=== PATIENT | male | born 1985 | race Caucasian/White ===

== ENCOUNTER → 2017-04-25 | Outpatient (CLI) | payer MEDICARE, MEDICAID ==
[2017-04-25 08:58] LABS: ALBUMIN 3.8 GM/DL (3.2-5.2); ALBUMIN/GLOBULIN RATIO 1.06 (1.00-1.93); ALKALINE PHOSPHATASE 124 U/L (45-117); ALT/SGPT 36 U/L (12-78); ANION GAP 8 MEQ/L (8-16); AST/SGOT 17 U/L (15-37); BILIRUBIN,TOTAL 0.3 MG/DL (0.2-1.0); BLOOD UREA NITROGEN 15 MG/DL (7-18); CALCIUM LEVEL 8.6 MG/DL (8.5-10.1); CARBON DIOXIDE LEVEL 22 MEQ/L (21-32); CHLORIDE LEVEL 112 MEQ/L (98-107); CREATININE FOR GFR 0.91 MG/DL (0.70-1.30); GLOMERULAR FILTRATION RATE > 60.0 (>60); GLUCOSE, FASTING 133 MG/DL (70-105); SODIUM LEVEL 142 MEQ/L (136-145); TOTAL PROTEIN 7.4 GM/DL (6.4-8.2)
[2017-04-25 09:06] LABS: BASO % 0.5 % (0.0-1.0); EOS # 0.2 K/mm3 (0.0-0.50); EOS % 2.3 % (0.0-3.0); LARGE UNSTAINED CELL # 0.5 K/mm3 (0.0-0.4); LARGE UNSTAINED CELL % 6.8 % (0.0-4.0); LYMPH # 1.1 K/mm3 (1.5-4.5); LYMPH % 15.8 % (24.0-44.0); MEAN CORPUSCULAR HEMOGLOBIN 31.5 pg (27.0-33.0); MEAN CORPUSCULAR HGB CONC 35.4 g/dl (32.0-36.5); MEAN CORPUSCULAR VOLUME 89.1 fl (80.0-96.0); MONO # 0.4 K/mm3 (0.0-0.8); MONO % 5.1 % (0.0-5.0); NEUTROPHILS # 4.8 K/mm3 (1.8-7.7); NEUTROPHILS % 69.5 % (36.0-66.0); PLATELET COUNT, AUTOMATED 168 k/mm3 (150-450); RED CELL DISTRIBUTION WIDTH 12.7 % (11.5-14.5); WHITE BLOOD COUNT 6.9 K/mm3 (4.0-10.0)
== END ==
LOC: M LAB 07:31
PROVIDERS: ATTEND Psychiatry & Neurology Neurology
DX: G40.309 Generalized idiopathic epilepsy and epileptic syndromes, not intractable, without status epilepticus (principal); G43.009 Migraine without aura, not intractable, without status migrainosus

== ENCOUNTER → 2017-04-25 | Outpatient (CLI) | payer MEDICARE, MEDICAID ==
[2017-04-25 09:04] LABS: ALBUMIN 3.7 GM/DL (3.2-5.2); ALBUMIN/GLOBULIN RATIO 1.09 (1.00-1.93); ALKALINE PHOSPHATASE 122 U/L (45-117); ALT/SGPT 37 U/L (12-78); ANION GAP 10 MEQ/L (8-16); AST/SGOT 16 U/L (15-37); BILIRUBIN,TOTAL 0.3 MG/DL (0.2-1.0); BLOOD UREA NITROGEN 15 MG/DL (7-18); CALCIUM LEVEL 8.7 MG/DL (8.5-10.1); CARBON DIOXIDE LEVEL 22 MEQ/L (21-32); CHLORIDE LEVEL 110 MEQ/L (98-107); CHOLESTEROL LEVEL 137 MG/DL (<200); CREATININE FOR GFR 0.92 MG/DL (0.70-1.30); FREE T4 0.77 NG/DL (0.76-1.46); GLOMERULAR FILTRATION RATE > 60.0 (>60); GLUCOSE, FASTING 133 MG/DL (70-105); MAGNESIUM LEVEL 2.3 MG/DL (1.8-2.4); SODIUM LEVEL 142 MEQ/L (136-145); TOTAL PROTEIN 7.1 GM/DL (6.4-8.2); TRIGLYCERIDES LEVEL 91 MG/DL (<150)
--- NOTE | 2017-04-25 09:57 | ECGEPIP ---
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
[2017-04-25 09:58] LABS: MEAN CORPUSCULAR HEMOGLOBIN 31.3 pg (27.0-33.0); MEAN CORPUSCULAR HGB CONC 35.1 g/dl (32.0-36.5); MEAN CORPUSCULAR VOLUME 89.2 fl (80.0-96.0); RED CELL DISTRIBUTION WIDTH 12.6 % (11.5-14.5)
== END ==
LOC: M LAB 07:36
PROVIDERS: ATTEND Nurse Practitioner Family
DX: R00.2 Palpitations (principal); G40.309 Generalized idiopathic epilepsy and epileptic syndromes, not intractable, without status epilepticus; G43.009 Migraine without aura, not intractable, without status migrainosus

== ENCOUNTER → 2017-09-09 | Outpatient (CLI) | payer MEDICARE, MEDICAID | LOC: M LAB 07:16 | PROVIDERS: ATTEND Nurse Practitioner Adult Health | DX: E88.81 Metabolic syndrome and other insulin resistance (principal); E78.00 Pure hypercholesterolemia, unspecified ==

== ENCOUNTER → 2017-10-08 | Outpatient (REF) | payer MEDICARE, MEDICAID | LOC: EEVIPCON 17:54 → M LAB REF 17:54 | PROVIDERS: ATTEND Physician Assistant | DX: L02.212 Cutaneous abscess of back [any part, except buttock and flank] (principal) ==

== ENCOUNTER → 2017-10-11 | Outpatient (CLI) | payer MEDICARE, MEDICAID | LOC: M LAB 07:00 | PROVIDERS: ATTEND Nurse Practitioner Psychiatric/Mental Health | DX: F31.32 Bipolar disorder, current episode depressed, moderate (principal); E78.00 Pure hypercholesterolemia, unspecified; R73.01 Impaired fasting glucose ==

== ENCOUNTER → 2017-10-26 | Outpatient (REF) | payer MEDICARE, MEDICAID | LOC: M LAB REF 16:33 | PROVIDERS: ATTEND Nurse Practitioner Adult Health | DX: L02.11 Cutaneous abscess of neck (principal) ==

== ENCOUNTER → 2017-12-20 | Outpatient (CLI) | payer MEDICARE, MEDICAID | LOC: M RAD 13:59 | DX: R22.1 Localized swelling, mass and lump, neck (principal) | CPT/HCPCS: 76536 ==

== ENCOUNTER 2018-01-20 09:16 | Day surgery (SDC) | payer MEDICARE, MEDICAID ==
[2018-01-20] MEDS ORDERED: LIDOCAINE 1% SDV 5 ML VIAL SQ (09:30)
[2018-01-20] MEDS: LR 1,000 ML IV (10:00)
[2018-01-20 10:14] LABS: BEDSIDE GLUCOSE 109 MG/DL (70-105)
[2018-01-20] MEDS ORDERED: PROPOFOL 200 MG/20 ML VIAL As Ordered ×5 (11:26→12:28)
[2018-01-20] MEDS ORDERED: MIDAZOLAM INJ 2 MG/2 ML VIAL (J2250) As Ordered (11:26)
[2018-01-20] MEDS ORDERED: fentaNYL 100 MCG/2 ML INJECTION (J3010) As Ordered ×2 (11:26→12:10)
[2018-01-20] MEDS: BUPIVACAINE HCL 0.25% 30 ML VIAL As Ordered (12:42)
[2018-01-20] MEDS: LIDOCAINE 1% SDV INJ 30 ML VIAL As Ordered (12:42)
[2018-01-20] MEDS ORDERED: ONDANSETRON 4MG/2ML VIAL (J2405) IV (13:15)
[2018-01-20] MEDS ORDERED: fentaNYL 100 MCG/2 ML INJECTION (J3010) IV (13:15)
[2018-01-20] MEDS ORDERED: NORCO, ANEXSIA 5/325MG TABLET (HYDROcodone/ACETAMINOPHEN) PO (13:15)
[2018-01-20] MEDS ORDERED: LR 1,000 ML IV (13:15)
[2018-01-20] MEDS ORDERED: PERCOCET 5MG/325MG TAB PO (13:15)
== END 2018-01-20 13:34 | disposition home or self-care (01) ==
LOC: M SDC 09:16
DX: L02.11 Cutaneous abscess of neck (principal); E11.9 Type 2 diabetes mellitus without complications; K21.9 Gastro-esophageal reflux disease without esophagitis; F41.9 Anxiety disorder, unspecified; F31.9 Bipolar disorder, unspecified; G47.30 Sleep apnea, unspecified; Z88.8 Allergy status to other drugs, medicaments and biological substances; Z88.1 Allergy status to other antibiotic agents; Z88.2 Allergy status to sulfonamides; Z79.899 Other long term (current) drug therapy; Z79.84 Long term (current) use of oral hypoglycemic drugs
CPT/HCPCS: 21501

== ENCOUNTER → 2018-02-13 | Outpatient (REF) | payer MEDICARE, MEDICAID ==
[2018-02-13 20:00] LABS: BASO # 0.1 10^3/uL (0.0-0.2); BASO % 0.9 % (0.0-1.0); EOS # 0.2 10^3/uL (0.0-0.50); EOS % 2.6 % (0.0-3.0); HEMATOCRIT 47.4 % (42.0-52.0); HEMOGLOBIN 15.9 g/dl (14.0-18.0); IMMATURE GRANULOCYTE % 0.3 % (0-3.0); LYMPH # 1.3 10^3/uL (1.5-4.5); LYMPH % 19.6 % (24.0-44.0); MEAN CORPUSCULAR HEMOGLOBIN 29.6 pg (27.0-33.0); MEAN CORPUSCULAR HGB CONC 33.5 g/dl (32.0-36.5); MEAN CORPUSCULAR VOLUME 88.1 fl (80.0-96.0); MONO # 0.5 10^3/uL (0.0-0.8); MONO % 7.6 % (0.0-5.0); NEUTROPHILS # 4.5 10^3/uL (1.8-7.7); PLATELET COUNT, AUTOMATED 180 10^3/uL (150-450); RED BLOOD COUNT 5.38 10^6/uL (4.30-6.10); RED CELL DISTRIBUTION WIDTH 12.3 % (11.5-14.5); WHITE BLOOD COUNT 6.5 10^3/uL (4.0-10.0)
[2018-02-13 20:11] LABS: TOTAL 25(OH) VITAMIN D 26.1 NG/ML (30.0-100.0)
== END ==
LOC: M LAB REF 17:36
DX: R53.83 Other fatigue (principal)
CPT/HCPCS: 84443

== ENCOUNTER → 2018-03-08 | Outpatient (CLI) | payer MEDICARE, MEDICAID | LOC: M EKG 16:43 | DX: R00.2 Palpitations (principal); R73.9 Hyperglycemia, unspecified; B35.1 Tinea unguium | CPT/HCPCS: 93005 ==

== ENCOUNTER → 2018-03-08 | Outpatient (REF) | payer MEDICARE, MEDICAID ==
[2018-03-08 17:49] LABS: ALBUMIN 3.8 GM/DL (3.2-5.2); ALBUMIN/GLOBULIN RATIO 1.03 (1.00-1.93); ALKALINE PHOSPHATASE 93 U/L (45-117); ALT/SGPT 39 U/L (12-78); ANION GAP 5 MEQ/L (8-16); AST/SGOT 18 U/L (7-37); BILIRUBIN,TOTAL 0.4 MG/DL (0.2-1.0); BLOOD UREA NITROGEN 14 MG/DL (7-18); CALCIUM LEVEL 9.1 MG/DL (8.5-10.1); CARBON DIOXIDE LEVEL 31 MEQ/L (21-32); CHLORIDE LEVEL 102 MEQ/L (98-107); CREATININE FOR GFR 0.72 MG/DL (0.70-1.30); GLOMERULAR FILTRATION RATE > 60.0 (>60); GLUCOSE, FASTING 120 MG/DL (70-100); POTASSIUM SERUM 4.1 MEQ/L (3.5-5.1); SODIUM LEVEL 138 MEQ/L (136-145); TOTAL PROTEIN 7.5 GM/DL (6.4-8.2)
[2018-03-08 20:15] LABS: ESTIMATED AVERAGE GLUCOSE 131 MG/DL (60-110); HEMOGLOBIN A1c 6.2 %
== END ==
LOC: M LAB REF 16:44
DX: R73.9 Hyperglycemia, unspecified (principal); B35.1 Tinea unguium

== ENCOUNTER → 2018-04-11 | Outpatient (CLI) | payer MEDICARE, MEDICAID ==
[2018-04-11 18:27] LABS: ALBUMIN 3.7 GM/DL (3.2-5.2); ALBUMIN/GLOBULIN RATIO 1.03 (1.00-1.93); ALKALINE PHOSPHATASE 98 U/L (45-117); ALT/SGPT 50 U/L (12-78); ANION GAP 6 MEQ/L (8-16); AST/SGOT 21 U/L (7-37); BILIRUBIN,TOTAL 0.4 MG/DL (0.2-1.0); BLOOD UREA NITROGEN 9 MG/DL (7-18); CALCIUM LEVEL 9.1 MG/DL (8.5-10.1); CARBON DIOXIDE LEVEL 32 MEQ/L (21-32); CHLORIDE LEVEL 102 MEQ/L (98-107); CREATININE FOR GFR 0.72 MG/DL (0.70-1.30); GLOMERULAR FILTRATION RATE > 60.0 (>60); GLUCOSE, FASTING 84 MG/DL (70-100); POTASSIUM SERUM 4.1 MEQ/L (3.5-5.1); SODIUM LEVEL 140 MEQ/L (136-145); TOTAL PROTEIN 7.3 GM/DL (6.4-8.2)
== END ==
LOC: M LAB 16:02
DX: B35.1 Tinea unguium (principal)
CPT/HCPCS: 80053

== ENCOUNTER → 2018-05-18 | Outpatient (REF) | payer MEDICARE, MEDICAID ==
[2018-05-18 19:10] LABS: ALBUMIN 3.4 GM/DL (3.2-5.2); ALBUMIN/GLOBULIN RATIO 0.94 (1.00-1.93); ALKALINE PHOSPHATASE 93 U/L (45-117); ALT/SGPT 35 U/L (12-78); ANION GAP 6 MEQ/L (8-16); AST/SGOT 15 U/L (7-37); BILIRUBIN,TOTAL 0.3 MG/DL (0.2-1.0); BLOOD UREA NITROGEN 13 MG/DL (7-18); CALCIUM LEVEL 8.5 MG/DL (8.5-10.1); CARBON DIOXIDE LEVEL 30 MEQ/L (21-32); CHLORIDE LEVEL 107 MEQ/L (98-107); CREATININE FOR GFR 0.66 MG/DL (0.70-1.30); GLOMERULAR FILTRATION RATE > 60.0 (>60); GLUCOSE, FASTING 98 MG/DL (70-100); POTASSIUM SERUM 3.9 MEQ/L (3.5-5.1); SODIUM LEVEL 143 MEQ/L (136-145)
== END ==
LOC: M LAB REF 17:14
DX: B35.1 Tinea unguium (principal)
CPT/HCPCS: 80053

== ENCOUNTER → 2018-10-25 | Outpatient (CLI) | payer MEDICARE, MEDICAID ==
[2018-10-25 08:52] LABS: BASO # 0.1 10^3/uL (0.0-0.2); BASO % 0.8 % (0.0-1.0); EOS # 0.2 10^3/uL (0.0-0.50); EOS % 3.9 % (0.0-3.0); HEMATOCRIT 51.7 % (42.0-52.0); HEMOGLOBIN 17.8 g/dl (13.5-17.5); IMMATURE GRANULOCYTE % 0.5 % (0-3.0); LYMPH # 1.2 10^3/uL (1.5-4.5); MEAN CORPUSCULAR HEMOGLOBIN 29.8 pg (27.0-33.0); MEAN CORPUSCULAR HGB CONC 34.4 g/dl (32.0-36.5); MEAN CORPUSCULAR VOLUME 86.6 fl (80.0-96.0); MONO # 0.4 10^3/uL (0.0-0.8); NEUTROPHILS # 4.2 10^3/uL (1.8-7.7); NEUTROPHILS % 68.8 % (36.0-66.0); PLATELET COUNT, AUTOMATED 209 10^3/uL (150-450); RED BLOOD COUNT 5.97 10^6/uL (4.30-6.10); RED CELL DISTRIBUTION WIDTH 12.5 % (11.5-14.5); WHITE BLOOD COUNT 6.1 10^3/uL (4.0-10.0)
[2018-10-25 09:25] LABS: ALBUMIN 3.6 GM/DL (3.2-5.2); ALBUMIN/GLOBULIN RATIO 1.03 (1.00-1.93); ALKALINE PHOSPHATASE 97 U/L (45-117); ALT/SGPT 39 U/L (12-78); ANION GAP 10 MEQ/L (8-16); AST/SGOT 19 U/L (7-37); BILIRUBIN,TOTAL 0.2 MG/DL (0.2-1.0); BLOOD UREA NITROGEN 15 MG/DL (7-18); CALCIUM LEVEL 9.1 MG/DL (8.5-10.1); CARBON DIOXIDE LEVEL 24 MEQ/L (21-32); CHLORIDE LEVEL 106 MEQ/L (98-107); CREATININE FOR GFR 0.81 MG/DL (0.70-1.30); GLOMERULAR FILTRATION RATE > 60.0 (>60); GLUCOSE, FASTING 129 MG/DL (70-100); POTASSIUM SERUM 4.1 MEQ/L (3.5-5.1); SODIUM LEVEL 140 MEQ/L (136-145); TOTAL PROTEIN 7.1 GM/DL (6.4-8.2)
[2018-10-28 00:11] LABS: OXCARBAZEPINE 29 ug/mL (10-35)
[2018-10-28 00:11] LABS: TOPIRAMATE LEVEL 3.8 ug/mL (2.0-25.0)
== END ==
LOC: M LAB 07:45
DX: G40.309 Generalized idiopathic epilepsy and epileptic syndromes, not intractable, without status epilepticus (principal); G43.009 Migraine without aura, not intractable, without status migrainosus; B35.1 Tinea unguium; R73.9 Hyperglycemia, unspecified
CPT/HCPCS: 80053

== ENCOUNTER → 2018-10-25 | Outpatient (CLI) | payer MEDICARE, MEDICAID ==
[2018-10-25 09:25] LABS: ALBUMIN 3.6 GM/DL (3.2-5.2); ALBUMIN/GLOBULIN RATIO 1.06 (1.00-1.93); ALKALINE PHOSPHATASE 103 U/L (45-117); ALT/SGPT 38 U/L (12-78); ANION GAP 9 MEQ/L (8-16); AST/SGOT 19 U/L (7-37); BILIRUBIN,TOTAL 0.2 MG/DL (0.2-1.0); BLOOD UREA NITROGEN 15 MG/DL (7-18); CARBON DIOXIDE LEVEL 24 MEQ/L (21-32); CHLORIDE LEVEL 106 MEQ/L (98-107); GLOMERULAR FILTRATION RATE > 60.0 (>60); GLUCOSE, FASTING 128 MG/DL (70-100); POTASSIUM SERUM 4.1 MEQ/L (3.5-5.1); SODIUM LEVEL 139 MEQ/L (136-145)
[2018-10-25 09:47] LABS: ESTIMATED AVERAGE GLUCOSE 143 MG/DL (60-110); HEMOGLOBIN A1c 6.6 %
== END ==
LOC: M LAB 07:52
DX: B35.1 Tinea unguium (principal); R73.9 Hyperglycemia, unspecified

== ENCOUNTER → 2019-03-30 | Outpatient (REF) | payer MEDICARE, MEDICAID ==
[~2019-03-30] MED LIST: ABIL10TA9 PO; ADDE30CA3 PO; FLUO20TA28 PO; FLUO40CA PO; HYDR-3713 PO; METF-699 PO; PRIL20TA2 PO; TOPA100T12 PO; TRIL1TAB PO; VITA-182 PO
[2019-04-01 00:10] LABS: Lyme Disease IgG/IgM Antibodie <0.91 ISR (0.00-0.90); Lyme Disease IgM Ab Quantitati <0.80 index (0.00-0.79)
== END ==
LOC: M LAB REF 12:05
PROVIDERS: ATTEND Family Medicine
DX: Z13.228 Encounter for screening for other metabolic disorders (principal)

== ENCOUNTER → 2019-04-06 | Outpatient (REF) | payer MEDICARE, MEDICAID ==
[2019-04-06 18:54] LABS: BASO # 0.1 10^3/uL (0.0-0.2); BASO % 0.8 % (0.0-1.0); EOS # 0.2 10^3/uL (0.0-0.50); EOS % 2.8 % (0.0-3.0); HEMATOCRIT 50.4 % (42.0-52.0); LYMPH # 1.4 10^3/uL (1.5-4.5); LYMPH % 21.2 % (24.0-44.0); MEAN CORPUSCULAR HEMOGLOBIN 29.6 pg (27.0-33.0); MEAN CORPUSCULAR HGB CONC 33.7 g/dl (32.0-36.5); MEAN CORPUSCULAR VOLUME 87.8 fl (80.0-96.0); MONO # 0.5 10^3/uL (0.0-0.8); MONO % 7.4 % (0.0-5.0); NEUTROPHILS # 4.3 10^3/uL (1.8-7.7); NEUTROPHILS % 67.3 % (36.0-66.0); PLATELET COUNT, AUTOMATED 199 10^3/uL (150-450); RED BLOOD COUNT 5.74 10^6/uL (4.30-6.10); WHITE BLOOD COUNT 6.5 10^3/uL (4.0-10.0)
[2019-04-06 19:07] LABS: ALT/SGPT 44 U/L (12-78); BILIRUBIN,TOTAL 0.4 MG/DL (0.2-1.0); BLOOD UREA NITROGEN 11 MG/DL (7-18); CALCIUM LEVEL 9.4 MG/DL (8.5-10.1); CARBON DIOXIDE LEVEL 28 MEQ/L (21-32); CHLORIDE LEVEL 102 MEQ/L (98-107); CHOLESTEROL LEVEL 174 MG/DL (<200); CHOLESTEROL RISK RATIO 4.833 (<5); CREATININE FOR GFR 0.83 MG/DL (0.70-1.30); FREE T4 0.87 NG/DL (0.76-1.46); GLOMERULAR FILTRATION RATE > 60.0 (>60); GLUCOSE, FASTING 103 MG/DL (70-100); HDL CHOLESTEROL 36 MG/DL (>40); LDL CHOLESTEROL 101 MG/DL (<100); NON-HDL-C 138 MG/DL; POTASSIUM SERUM 3.9 MEQ/L (3.5-5.1); SODIUM LEVEL 138 MEQ/L (136-145); TOTAL PROTEIN 7.3 GM/DL (6.4-8.2); TRIGLYCERIDES LEVEL 184 MG/DL (<150)
[2019-04-06 19:10] LABS: TOTAL 25(OH) VITAMIN D 30.3 NG/ML (30.0-100.0)
[2019-04-06 20:07] LABS: HEMOGLOBIN A1c 6.4 %
== END ==
LOC: M LAB REF 18:23
PROVIDERS: ATTEND Family Medicine
DX: E11.9 Type 2 diabetes mellitus without complications (principal); Z13.228 Encounter for screening for other metabolic disorders

== ENCOUNTER → 2019-07-06 | Outpatient (REF) | payer MEDICAID, MEDICARE ==
[2019-07-06 13:28] LABS: ALBUMIN 3.6 GM/DL (3.2-5.2); ALT/SGPT 34 U/L (12-78); BILIRUBIN,TOTAL 0.4 MG/DL (0.2-1.0); BLOOD UREA NITROGEN 15 MG/DL (7-18); CALCIUM LEVEL 9.1 MG/DL (8.5-10.1); CARBON DIOXIDE LEVEL 26 MEQ/L (21-32); CHLORIDE LEVEL 104 MEQ/L (98-107); CHOLESTEROL LEVEL 178 MG/DL (<200); CREATININE FOR GFR 0.79 MG/DL (0.70-1.30); GLOMERULAR FILTRATION RATE > 60.0 (>60); GLUCOSE, FASTING 138 MG/DL (70-100); HDL CHOLESTEROL 37 MG/DL (>40); LDL CHOLESTEROL 110 MG/DL (<100); NON-HDL-C 141 MG/DL; SODIUM LEVEL 139 MEQ/L (136-145); TOTAL PROTEIN 6.9 GM/DL (6.4-8.2); TRIGLYCERIDES LEVEL 154 MG/DL (<150)
[2019-07-06 13:59] LABS: HEMOGLOBIN A1c 6.8 %
== END ==
LOC: M LAB REF 12:18
PROVIDERS: ATTEND Family Medicine
DX: E11.9 Type 2 diabetes mellitus without complications (principal)

== ENCOUNTER → 2019-10-02 | Outpatient (REF) | payer BC, MEDICAID ==
[2019-10-02 16:45] LABS: ALBUMIN 3.7 GM/DL (3.2-5.2); ALT/SGPT 41 U/L (12-78); BILIRUBIN,TOTAL 0.5 MG/DL (0.2-1.0); BLOOD UREA NITROGEN 14 MG/DL (7-18); CARBON DIOXIDE LEVEL 29 MEQ/L (21-32); CHLORIDE LEVEL 102 MEQ/L (98-107); CHOLESTEROL LEVEL 170 MG/DL (<200); CHOLESTEROL RISK RATIO 4.722 (<5); CREATININE FOR GFR 0.84 MG/DL (0.70-1.30); GLOMERULAR FILTRATION RATE > 60.0 (>60); GLUCOSE, FASTING 130 MG/DL (70-100); HDL CHOLESTEROL 36 MG/DL (>40); LDL CHOLESTEROL 108 MG/DL (<100); NON-HDL-C 134 MG/DL; POTASSIUM SERUM 4.2 MEQ/L (3.5-5.1); SODIUM LEVEL 139 MEQ/L (136-145); TOTAL PROTEIN 7.2 GM/DL (6.4-8.2); TRIGLYCERIDES LEVEL 131 MG/DL (<150)
[2019-10-02 16:55] LABS: HEMOGLOBIN A1c 6.5 %
[2019-10-02 17:10] LABS: MALB URINE SIEMENS 8.7 MG/L; MAU/CREAT RATIO 7.5 MCG/MG (0.0-30.0)
== END ==
LOC: M LAB REF 16:09
PROVIDERS: ATTEND Family Medicine
DX: E11.9 Type 2 diabetes mellitus without complications (principal)

== ENCOUNTER → 2020-02-05 | Outpatient (REF) | payer BC, MEDICAID ==
[2020-02-05 12:08] LABS: BASO # 0.1 10^3/uL (0.0-0.2); EOS # 0.2 10^3/uL (0.0-0.5); HEMATOCRIT 48.7 % (42.0-52.0); HEMOGLOBIN 16.6 g/dl (13.5-17.5); LYMPH # 1.4 10^3/uL (1.5-5.0); LYMPH % 19.8 % (24.0-44.0); MEAN CORPUSCULAR HEMOGLOBIN 29.6 pg (27.0-33.0); MEAN CORPUSCULAR HGB CONC 34.1 g/dl (32.0-36.5); MEAN CORPUSCULAR VOLUME 86.8 fl (80.0-96.0); MONO # 0.5 10^3/uL (0.0-0.8); MONO % 7.7 % (0.0-5.0); NEUTROPHILS # 4.8 10^3/uL (1.5-8.5); NEUTROPHILS % 68.4 % (36.0-66.0); PLATELET COUNT, AUTOMATED 179 10^3/uL (150-450); RED BLOOD COUNT 5.61 10^6/uL (4.30-6.10)
[2020-02-05 12:23] LABS: ALBUMIN 3.4 GM/DL (3.2-5.2); ALT/SGPT 43 U/L (12-78); BILIRUBIN,TOTAL 0.4 MG/DL (0.2-1.0); BLOOD UREA NITROGEN 17 MG/DL (7-18); CALCIUM LEVEL 9.2 MG/DL (8.5-10.1); CARBON DIOXIDE LEVEL 30 MEQ/L (21-32); CHLORIDE LEVEL 102 MEQ/L (98-107); CHOLESTEROL LEVEL 131 MG/DL (<200); CHOLESTEROL RISK RATIO 5.458 (<5); CREATININE FOR GFR 0.85 MG/DL (0.70-1.30); GLOMERULAR FILTRATION RATE > 60.0 (>60); GLUCOSE, FASTING 162 MG/DL (70-100); HDL CHOLESTEROL 24 MG/DL (>40); LDL CHOLESTEROL 69 MG/DL (<100); NON-HDL-C 107 MG/DL; POTASSIUM SERUM 4.3 MEQ/L (3.5-5.1); SODIUM LEVEL 138 MEQ/L (136-145); THYROID STIMULATING HORMONE 0.797 uIU/ML (0.358-3.740); TRIGLYCERIDES LEVEL 192 MG/DL (<150)
== END ==
LOC: M LAB REF 11:32
PROVIDERS: ATTEND Family Medicine
DX: E11.9 Type 2 diabetes mellitus without complications (principal)

== ENCOUNTER → 2020-05-04 | Outpatient (CLI) | payer BC, MEDICAID ==
[~2020-05-04] MED LIST changes: +ABIL1TAB12 PO; +FISH1000 PO; +GABA-843 PO; +LIPI10TA PO; +PRAZ2CAP PO; +VITAD1000T PO
== END ==
LOC: M LABSMTC 09:08
PROVIDERS: ATTEND Anesthesiology
DX: Z03.818 Encounter for observation for suspected exposure to other biological agents ruled out (principal); Z11.59 Encounter for screening for other viral diseases
CPT/HCPCS: C9803; U0003

== ENCOUNTER 2020-05-07 08:03 | Day surgery (SDC) | payer BC, MEDICAID ==
[~2020-05-07] VITALS: Ht 170.2 cm; Wt 117.4 kg
[~2020-05-07 08:03] MED LIST changes: +D31000TA2 PO; +LIDOCAINE 2% 100MG/5ML SDV (FOR ANES.) As Ordered ONE; -METF-699 PO; +METF-817 PO; +NS 1,000 ML IV ONE; -VITAD1000T PO; +propofoL 200 MG/20 ML VIAL As Ordered ONE
--- NOTE | 2020-05-07 09:38 | ROOR ---
Patient Name: Rui Dumont Procedure Date: 05/07/2020 9:10 AM Date of : 1985 Age: 34 Room: [facility] Gender: Male Note Status: Finalized Procedure: Colonoscopy Indications: Rectal bleeding Providers: Waylon Bradshaw MD Referring MD: Miguel Angel LYNCH MD Requesting Provider: Medicines: Monitored Anesthesia Care Complications: No immediate complications. Procedure: Pre-Anesthesia Assessment: - Prior to the procedure, a History and Physical was performed, and patient medications and allergies were reviewed. The patient is competent. The risks and benefits of the procedure and the sedation options and risks were discussed with the patient. All questions were answered and informed consent was obtained. Patient identification and proposed procedure were verified by the physician, the nurse and the anesthesiologist in the endoscopy suite. Mental Status Examination: alert and oriented. Airway Examination: normal oropharyngeal airway and neck mobility. Respiratory Examination: clear to auscultation. CV Examination: normal. Prophylactic Antibiotics: The patient does not require prophylactic antibiotics. Prior Anticoagulants: The patient has taken no previous anticoagulant or antiplatelet agents. ASA Grade Assessment: II - A patient with mild systemic disease. After reviewing the risks and benefits, the patient was deemed in satisfactory condition to undergo the procedure. The anesthesia plan was to use monitored anesthesia care (MAC). Immediately prior to administration of medications, the patient was re-assessed for adequacy to receive sedatives. The heart rate, respiratory rate, oxygen saturations, blood pressure, adequacy of pulmonary ventilation, and response to care were monitored throughout the procedure. The physical status of the patient was re-assessed after the procedure. The Colonoscope was introduced through the anus and advanced to 10 cm into the ileum. The colonoscopy was somewhat difficult due to poor bowel prep. Successful completion of the procedure was aided by lavage. The patient tolerated the procedure well. Findings: There is no endoscopic evidence of bleeding, diverticula, erythema, inflammation or polyps in the entire colon. No additional abnormalities were found on retroflexion. terminal ileum is normal - no signs of inflammation Poor prep with portions with solid stool, small polyps could easily be missed. but with large amount of lavage was able to see about 90% of the colon wall. Impression: - No specimens collected. Recommendation: - May need to be evaluated in the ER if bleeding happens again - Discharge patient to home [Means]. - Resume regular diet. Waylon Bradshaw MD Waylon Bradshaw MD 05/07/2020 9:38:42 AM Electronically signed by Waylon Bradshaw MD Number of Addenda: 0 Note Initiated On: 05/07/2020 9:10 AM Estimated Blood Loss: Estimated blood loss: none.
[2020-05-07 10:00] VITALS: BP 120/64
== END 2020-05-07 10:02 | disposition home or self-care (01) ==
LOC: M OPP 08:03
PROVIDERS: ATTEND Surgery
DX: K62.5 Hemorrhage of anus and rectum (principal); E11.9 Type 2 diabetes mellitus without complications; Z79.899 Other long term (current) drug therapy; Z88.2 Allergy status to sulfonamides; Z88.8 Allergy status to other drugs, medicaments and biological substances

== ENCOUNTER → 2020-07-14 | Outpatient (REF) | payer BC, MEDICAID ==
[~2020-07-14] MED LIST changes: -LIDOCAINE 2% 100MG/5ML SDV (FOR ANES.) As Ordered ONE; -NS 1,000 ML IV ONE; -propofoL 200 MG/20 ML VIAL As Ordered ONE
[2020-07-14 18:05] LABS: ALBUMIN 3.6 GM/DL (3.2-5.2); ALT/SGPT 78 U/L (12-78); BILIRUBIN,TOTAL 0.5 MG/DL (0.2-1.0); BLOOD UREA NITROGEN 12 MG/DL (7-18); CALCIUM LEVEL 8.6 MG/DL (8.5-10.1); CARBON DIOXIDE LEVEL 28 MEQ/L (21-32); CHLORIDE LEVEL 104 MEQ/L (98-107); CHOLESTEROL LEVEL 103 MG/DL (<200); CHOLESTEROL RISK RATIO 3.121 (<5); CREATININE FOR GFR 0.88 MG/DL (0.70-1.30); GLOMERULAR FILTRATION RATE > 60.0 (>60); GLUCOSE, FASTING 151 MG/DL (70-100); HDL CHOLESTEROL 33 MG/DL (>40); LDL CHOLESTEROL 52 MG/DL (<100); NON-HDL-C 70 MG/DL; POTASSIUM SERUM 3.7 MEQ/L (3.5-5.1); SODIUM LEVEL 140 MEQ/L (136-145); TESTOSTERONE 268 NG/DL (241-827); TOTAL PROTEIN 7.1 GM/DL (6.4-8.2); TRIGLYCERIDES LEVEL 89 MG/DL (<150)
[2020-07-14 21:26] LABS: HEMOGLOBIN A1c 7.2 %
== END ==
LOC: M LAB REF 17:23
PROVIDERS: ATTEND Family Medicine Addiction Medicine
DX: N52.02 Corporo-venous occlusive erectile dysfunction (principal); E11.9 Type 2 diabetes mellitus without complications

== ENCOUNTER → 2020-09-30 | Outpatient (REF) | payer BC, MEDICAID, MEDICARE ==
[2020-09-30 10:55] LABS: SEMEN APPEARANCE OPAQUE (OPAQUE); SEMEN VISCOSITY LIQUID (LIQUID); SEMEN VOLUME 2.9 ml (2.0-5.0)
[2020-09-30 10:56] LABS: SPERM CONCENTRATION 8.2 M/ml (>=15.0); WBC CONCENTRATION >1 M/ml (<=1 M/ml)
== END ==
LOC: M SMT 09:47
PROVIDERS: ATTEND Nurse Practitioner Women's Health
DX: N46.9 Male infertility, unspecified (principal)

== ENCOUNTER → 2020-10-24 | Outpatient (REF) | payer BC, MEDICAID ==
[2020-10-24 17:13] LABS: ALBUMIN 3.6 GM/DL (3.2-5.2); ALT/SGPT 55 U/L (12-78); BILIRUBIN,TOTAL 0.5 MG/DL (0.2-1.0); BLOOD UREA NITROGEN 9 MG/DL (7-18); CALCIUM LEVEL 8.9 MG/DL (8.5-10.1); CARBON DIOXIDE LEVEL 31 MEQ/L (21-32); CHLORIDE LEVEL 105 MEQ/L (98-107); CHOLESTEROL LEVEL 155 MG/DL (<200); CHOLESTEROL RISK RATIO 4.428 (<5); CREATININE FOR GFR 0.71 MG/DL (0.70-1.30); GLOMERULAR FILTRATION RATE > 60.0 (>60); GLUCOSE, FASTING 148 MG/DL (70-100); HDL CHOLESTEROL 35 MG/DL (>40); HEMOGLOBIN A1c 7.9 %; LDL CHOLESTEROL 93 MG/DL (<100); NON-HDL-C 120 MG/DL; POTASSIUM SERUM 3.8 MEQ/L (3.5-5.1); SODIUM LEVEL 141 MEQ/L (136-145); TRIGLYCERIDES LEVEL 137 MG/DL (<150)
== END ==
LOC: M LAB REF 16:05
PROVIDERS: ATTEND Family Medicine Addiction Medicine
DX: E11.9 Type 2 diabetes mellitus without complications (principal)

== ENCOUNTER → 2020-10-30 | Outpatient (CLI) | payer BC, MEDICAID ==
--- NOTE | 2020-10-30 16:23 | REP ---
INDICATION: AZOOSPERMIA ,MALE INFERTILITY UNSPECIFIED. COMPARISON: None. TECHNIQUE: Real-time sonographic evaluation of scrotum and contents performed. FINDINGS: The testicles are normal in size and echotexture, right testicle measuring 4.6 x 2.4 x 3.6 cm and left testicle 3.6 x 1.7 x 2.7 cm. No testicular mass or torsion. Blood flow is seen in each testicle with duplex Doppler evaluation. Epididymis is unremarkable bilaterally. There is no significant hydrocele. IMPRESSION: Negative scrotal ultrasound. <Electronically signed by Crow Ramires > 10/30/20 [id number]
== END ==
LOC: M RAD 15:04
PROVIDERS: ATTEND Nurse Practitioner Women's Health
DX: N46.01 Organic azoospermia (principal)

== ENCOUNTER → 2020-11-11 | Outpatient (CLI) | payer BC, MEDICAID ==
[2020-11-11 11:20] LABS: ESTRADIOL 38.6 PG/ML (<39.8); LUTEINIZING HORMONE 4.2 mIU/mL (1.5-9.3); PROLACTIN 3.5 NG/ML (2.1-17.7)
[2020-11-13 20:07] LABS: TESTOSTERONE FREE (DIRECT) 9.1 pg/mL (8.7-25.1)
== END ==
LOC: M LAB 09:56
PROVIDERS: ATTEND Nurse Practitioner Women's Health
DX: N46.9 Male infertility, unspecified (principal)

== ENCOUNTER → 2020-12-01 | Outpatient (REF) | payer BC ==
[~2020-12-01] MED LIST changes: +GABA-282 PO; -GABA-843 PO
== END ==
LOC: M LAB REF 16:48
PROVIDERS: ATTEND Physician Assistant Medical
DX: S11.80XA Unspecified open wound of other specified part of neck, initial encounter (principal); Y92.9 Unspecified place or not applicable; Y93.9 Activity, unspecified; Y99.9 Unspecified external cause status

== ENCOUNTER → 2021-01-22 | Outpatient (REF) | payer BC, MEDICAID ==
[2021-01-22 11:03] LABS: SEMEN APPEARANCE OPAQUE (OPAQUE); SEMEN VISCOSITY LIQUID (LIQUID); SEMEN WBC >1 M/ml (<=1 M/ml); SEMEN pH 8.5 (7.0-8.0)
== END ==
LOC: M SMT 10:24
PROVIDERS: ATTEND Urology
DX: N46.9 Male infertility, unspecified (principal)

== ENCOUNTER → 2021-03-30 | Outpatient (REF) | payer BC, MEDICAID ==
[2021-03-30 09:38] LABS: SEMEN APPEARANCE OPAQUE (OPAQUE); SEMEN VISCOSITY LIQUID (LIQUID); SEMEN VOLUME 3.9 ml (2.0-5.0); SPERM CONCENTRATION 16.8 M/ml (>=15.0); WBC CONCENTRATION <=1 M/ml (<=1 M/ml)
== END ==
LOC: M SMT 09:04
PROVIDERS: ATTEND Nurse Practitioner Women's Health
DX: N46.01 Organic azoospermia (principal)

== ENCOUNTER 2021-07-01 08:58 | Emergency (ER) | payer BC, MEDICAID ==
[~2021-07-01] VITALS: Ht 170.2 cm; Wt 122.8 kg
[2021-07-01 11:10] LABS: BASO # 0.1 10^3/uL (0.0-0.2); BASO % 1.1 % (0.0-1.0); EOS # 0.1 10^3/uL (0.0-0.5); EOS % 1.5 % (0.0-3.0); HEMATOCRIT 47.8 % (42.0-52.0); HEMOGLOBIN 15.9 g/dl (13.5-17.5); LYMPH # 1.1 10^3/uL (1.5-5.0); LYMPH % 22.9 % (24.0-44.0); MEAN CORPUSCULAR HEMOGLOBIN 28.7 pg (27.0-33.0); MEAN CORPUSCULAR HGB CONC 33.3 g/dl (32.0-36.5); MEAN CORPUSCULAR VOLUME 86.3 fl (80.0-96.0); MONO # 0.4 10^3/uL (0.0-0.8); MONO % 8.5 % (2.0-8.0); NEUTROPHILS # 3.1 10^3/uL (1.5-8.5); NEUTROPHILS % 65.6 % (36.0-66.0); PLATELET COUNT, AUTOMATED 156 10^3/uL (150-450); RED BLOOD COUNT 5.54 10^6/uL (4.30-6.10); WHITE BLOOD COUNT 4.7 10^3/uL (4.0-10.0)
[2021-07-01] MEDS ORDERED: MONT10TA10 PO (11:14)
[2021-07-01] MEDS ORDERED: GLIP5TAB20 PO (11:14)
[2021-07-01] MEDS ORDERED: JARD1TAB PO (11:14)
[2021-07-01] MEDS ORDERED: LEXA1TAB PO (11:14)
[2021-07-01 11:49] LABS: ALBUMIN 3.7 GM/DL (3.2-5.2); ALT/SGPT 67 U/L (12-78); BILIRUBIN,DIRECT < 0.1 MG/DL (0.0-0.2); BILIRUBIN,TOTAL 0.3 MG/DL (0.2-1.0); FREE T4 0.92 NG/DL (0.76-1.46); LIPASE 70 U/L (73-393); TOTAL PROTEIN 7.3 GM/DL (6.4-8.2)
--- NOTE | 2021-07-01 12:22 | REP ---
INDICATION: intermittent dizziness 1 week, balance off. COMPARISON: 02/07/2011 TECHNIQUE: 4.5 mm contiguous transaxial sections were obtained from the skull base to the cerebral convexities with thin cuts through the posterior fossa without the administration of intravenous contrast. FINDINGS: The ventricles and sulci are consistent with the patient's age. There are no extra-axial fluid collections. There is no mass effect. The deep cerebral white matter is consistent with the patient's age. The orbital and petrous structures, cerebellopontine angles, and posterior fossa are unremarkable. The sella turcica, cavernous, and paracavernous structures are essentially unremarkable. The visualized portions of the paranasal sinuses and mastoid air cells are clear. Images of the skull base show no gross abnormality. IMPRESSION: Essentially unremarkable CT examination of the brain. <Electronically signed by Tenzin Quijano > 07/01/21 [id number]
[2021-07-01 12:37] VITALS: BP 140/72
--- NOTE | 2021-07-02 06:29 | ECGEPIP ---
[facility] - ED Test Date: 2021-07-01 Pat Name: OCTAVIO EISENBERG Department: Room: - Gender: Male Triage Assistant: RAQUEL : 1985 Requested By: TILA Gomez PA-C Order Number: [id number] Reading MD: Toan Vasquez Measurements Intervals [place] Rate: 87 P: 52 ND: 172 QRS: -7 QRSD: 80 T: 38 QT: 356 QTc: 428 Interpretive Statements Normal sinus rhythm LEFT ANTERIOR FASCICULAR BLOCK SIMILAR TO 03/08/18 Electronically Signed on 07-02-2021 6:29:02 EDT by Toan Vasquez
== END 2021-07-01 13:10 | disposition home or self-care (01) ==
LOC: M ED 08:58
DX: R42 Dizziness and giddiness (principal); R51.9 Headache, unspecified; I44.4 Left anterior fascicular block; E11.9 Type 2 diabetes mellitus without complications; E78.5 Hyperlipidemia, unspecified; R56.9 Unspecified convulsions; K21.9 Gastro-esophageal reflux disease without esophagitis; G47.30 Sleep apnea, unspecified; F33.9 Major depressive disorder, recurrent, unspecified; Z87.39 Personal history of other diseases of the musculoskeletal system and connective tissue; Z88.1 Allergy status to other antibiotic agents; Z88.2 Allergy status to sulfonamides; Z88.8 Allergy status to other drugs, medicaments and biological substances; Z79.899 Other long term (current) drug therapy

== ENCOUNTER 2022-03-08 19:00 | Emergency (ER) | payer BC, MEDICAID, OTHER ==
[~2022-03-08] VITALS: Ht 170.2 cm; Wt 113.4 kg
[~2022-03-08 19:00] MED LIST changes: -D31000TA2 PO; +GLIP5TAB20 PO; +JARD1TAB PO; +LEXA1TAB PO; +MONT10TA97 PO; +VITA100093 PO
[2022-03-08 19:01] VITALS: BP 131/84
[2022-03-08] MEDS ORDERED: LIDOCAINE 5% (LIDODERM) PATCH TD ONE (21:55)
[2022-03-08] MEDS ORDERED: methocarbamoL 750 MG TAB PO ONE (21:55)
[2022-03-08] MEDS ORDERED: METH-1165 PO (23:11)
[2022-03-08] MEDS ORDERED: LIDO5DIS41 TOP (23:11)
[2022-03-09] MEDS ORDERED: **NOTE PATIENT COMMENT** MISC XX SCH (21:00)
== END 2022-03-08 23:21 | disposition home or self-care (01) ==
LOC: M ED 19:00
DX: M54.50 Low back pain, unspecified (principal); E11.9 Type 2 diabetes mellitus without complications; K21.9 Gastro-esophageal reflux disease without esophagitis; G40.509 Epileptic seizures related to external causes, not intractable, without status epilepticus; Z88.2 Allergy status to sulfonamides; Z88.6 Allergy status to analgesic agent; Z79.899 Other long term (current) drug therapy

== ENCOUNTER → 2022-04-22 | Outpatient (CLI) | payer OTHER ==
[~2022-04-22] MED LIST changes: +LIDO5DIS41 TOP; +METH-1165 PO
[2022-04-22 08:35] LABS: BASO # 0.1 10^3/uL (0.0-0.2); EOS # 0.2 10^3/uL (0.0-0.5); EOS % 2.6 % (0.0-3.0); HEMATOCRIT 48.6 % (42.0-52.0); HEMOGLOBIN 16.7 g/dl (13.5-17.5); LYMPH # 1.3 10^3/uL (1.5-5.0); LYMPH % 21.6 % (24.0-44.0); MEAN CORPUSCULAR HEMOGLOBIN 29.2 pg (27.0-33.0); MEAN CORPUSCULAR HGB CONC 34.4 g/dl (32.0-36.5); MONO # 0.5 10^3/uL (0.0-0.8); MONO % 8.4 % (2.0-8.0); NEUTROPHILS % 66.1 % (36.0-66.0); PLATELET COUNT, AUTOMATED 194 10^3/uL (150-450); RED BLOOD COUNT 5.72 10^6/uL (4.30-6.10); WHITE BLOOD COUNT 6.1 10^3/uL (4.0-10.0)
[2022-04-22 08:47] LABS: ALBUMIN 3.8 GM/DL (3.2-5.2); ALT/SGPT 42 U/L (12-78); BILIRUBIN,TOTAL 0.5 MG/DL (0.2-1.0); BLOOD UREA NITROGEN 7 MG/DL (7-18); CALCIUM LEVEL 9.7 MG/DL (8.5-10.1); CARBON DIOXIDE LEVEL 27 MEQ/L (21-32); CHLORIDE LEVEL 102 MEQ/L (98-107); CREATININE FOR GFR 0.72 MG/DL (0.70-1.30); GLOMERULAR FILTRATION RATE > 60.0 (>60); GLUCOSE, FASTING 147 MG/DL (70-100); POTASSIUM SERUM 3.8 MEQ/L (3.5-5.1); SODIUM LEVEL 136 MEQ/L (136-145); TOTAL PROTEIN 7.8 GM/DL (6.4-8.2)
[2022-04-22 11:38] LABS: TOTAL 25(OH) VITAMIN D 27.8 NG/ML (30.0-100.0)
[2022-04-22 11:39] LABS: FOLATE 16.1 NG/ML; VITAMIN B12 LEVEL 718 PG/ML
== END ==
LOC: M LAB 07:46
PROVIDERS: ATTEND Psychiatry & Neurology Neurology
DX: R56.9 Unspecified convulsions (principal)

== ENCOUNTER 2022-08-21 17:07 | Emergency (ER) | payer OTHER ==
[~2022-08-21] VITALS: Ht 170.2 cm; Wt 109.0 kg
[2022-08-21 17:08] VITALS: BP 150/70
[2022-08-21] MEDS ORDERED: PROPARACAINE 0.5% OPHTH SOL 15ML OD ONE (17:50)
[2022-08-21] MEDS ORDERED: FLUORESCEIN OPHTH 1 MG STRIP OD ONE (17:50)
[2022-08-21] MEDS ORDERED: ERYT5OIN25 OP (18:08)
== END 2022-08-21 18:18 | disposition home or self-care (01) ==
LOC: M ED 17:07
DX: S05.01XA Injury of conjunctiva and corneal abrasion without foreign body, right eye, initial encounter (principal); E11.9 Type 2 diabetes mellitus without complications; K21.9 Gastro-esophageal reflux disease without esophagitis; G40.89 Other seizures; Z88.2 Allergy status to sulfonamides; Z88.8 Allergy status to other drugs, medicaments and biological substances; Z79.811 Long term (current) use of aromatase inhibitors; Z79.891 Long term (current) use of opiate analgesic; Z79.899 Other long term (current) drug therapy; Y92.9 Unspecified place or not applicable; Y93.9 Activity, unspecified; Y99.9 Unspecified external cause status

== ENCOUNTER → 2022-08-23 | Outpatient (REF) | payer OTHER, MEDICAID ==
[~2022-08-23] MED LIST changes: +ERYT5OIN25 OP
== END ==
LOC: M LAB REF 16:30
PROVIDERS: ATTEND Ophthalmology
DX: H16.001 Unspecified corneal ulcer, right eye (principal)

== ENCOUNTER → 2022-09-13 | Outpatient (REF) | payer OTHER, MEDICAID ==
[2022-09-13 14:45] LABS: ALBUMIN 3.7 GM/DL (3.2-5.2); ALT/SGPT 39 U/L (12-78); BILIRUBIN,TOTAL 0.4 MG/DL (0.2-1.0); BLOOD UREA NITROGEN 12 MG/DL (7-18); CALCIUM LEVEL 9.3 MG/DL (8.5-10.1); CARBON DIOXIDE LEVEL 26 MEQ/L (21-32); CHLORIDE LEVEL 101 MEQ/L (98-107); CREATININE FOR GFR 0.72 MG/DL (0.70-1.30); GLOMERULAR FILTRATION RATE > 60.0 (>60); GLUCOSE, FASTING 114 MG/DL (70-100); POTASSIUM SERUM 4.2 MEQ/L (3.5-5.1); SODIUM LEVEL 136 MEQ/L (136-145); TOTAL PROTEIN 7.4 GM/DL (6.4-8.2)
[2022-09-13 15:04] LABS: HEMOGLOBIN A1c 6.1 %
== END ==
LOC: M LAB REF 12:31
PROVIDERS: ATTEND Family Medicine Addiction Medicine
DX: E11.9 Type 2 diabetes mellitus without complications (principal)

== ENCOUNTER → 2022-11-17 | Outpatient (REF) | payer OTHER, MEDICAID ==
[2022-11-17 12:59] LABS: MALB URINE SIEMENS < 3.0 MG/DL; MAU/CREAT RATIO 9.3 MCG/MG (0.0-30.0)
[2022-11-17 17:05] LABS: HEMOGLOBIN A1c 6.1 % (4.0-6.0)
[2022-11-17 17:17] LABS: ALBUMIN 3.7 G/DL (3.2-5.2); ALKALINE PHOSPHATASE 118 U/L (46-116); ALT/SGPT 35 U/L (7.0-40); AST/SGOT 29 U/L (<34); BILIRUBIN,TOTAL 0.4 MG/DL (0.3-1.2); BLOOD UREA NITROGEN 14 MG/DL (9-23); CALCIUM LEVEL 8.9 MG/DL (8.5-10.1); CARBON DIOXIDE LEVEL 28 MMOL/L (20-31); CHLORIDE LEVEL 99 MMOL/L (98-107); CHOLESTEROL LEVEL 173 MG/DL (<200); CHOLESTEROL RISK RATIO 4.17 (<5); CREATININE FOR GFR 0.59 MG/DL (0.70-1.30); GLOMERULAR FILTRATION RATE > 60.0 (>60); GLUCOSE, FASTING 104 MG/DL (60-100); HDL CHOLESTEROL 41.4 MG/DL (>40); NON-HDL-C 132 MG/DL; SODIUM LEVEL 134 MMOL/L (136-145); TOTAL PROTEIN 7.1 G/DL (5.7-8.2); TRIGLYCERIDES LEVEL 183 MG/DL (<150)
[2022-11-17 17:21] LABS: THYROID STIMULATING HORMONE 3.875 uIU/ML (0.55-4.78)
== END ==
LOC: M LAB REF 11:31
PROVIDERS: ATTEND Family Medicine Addiction Medicine
DX: E11.69 Type 2 diabetes mellitus with other specified complication (principal)

== ENCOUNTER → 2022-11-30 | Outpatient (REF) | payer OTHER, MEDICAID | LOC: M LAB REF 16:32 | PROVIDERS: ATTEND Nurse Practitioner Family | DX: R68.89 Other general symptoms and signs (principal) ==

== ENCOUNTER → 2022-12-03 | Outpatient (REF) | payer OTHER, MEDICAID ==
[2022-12-03 14:36] LABS: CREATININE, URINE 36.3 MG/DL
[2022-12-03 14:37] LABS: MALB URINE SIEMENS < 3.0 MG/DL; MAU/CREAT RATIO 8.2 MCG/MG (0.0-30.0)
== END ==
LOC: M LAB REF 12:53
PROVIDERS: ATTEND Family Medicine Addiction Medicine
DX: E11.69 Type 2 diabetes mellitus with other specified complication (principal)

== ENCOUNTER → 2023-02-07 | Outpatient (CLI) | payer OTHER | LOC: M EKG 09:55 | PROVIDERS: ATTEND Nurse Practitioner Psychiatric/Mental Health | DX: F90.0 Attention-deficit hyperactivity disorder, predominantly inattentive type (principal) ==

== ENCOUNTER → 2023-02-23 | Outpatient (REF) | payer OTHER, MEDICAID ==
[2023-02-23 15:13] LABS: THYROID STIMULATING HORMONE 2.545 uIU/ML (0.55-4.78)
[2023-02-23 15:16] LABS: ALBUMIN 3.6 G/DL (3.2-5.2); ALKALINE PHOSPHATASE 127 U/L (46-116); ALT/SGPT 34 U/L (7.0-40); AST/SGOT 19 U/L (<34); BILIRUBIN,TOTAL 0.3 MG/DL (0.3-1.2); BLOOD UREA NITROGEN 16 MG/DL (9-23); CALCIUM LEVEL 9.4 MG/DL (8.5-10.1); CARBON DIOXIDE LEVEL 29 MMOL/L (20-31); CHLORIDE LEVEL 106 MMOL/L (98-107); CHOLESTEROL LEVEL 120 MG/DL (<200); CREATININE FOR GFR 0.79 MG/DL (0.70-1.30); GLOMERULAR FILTRATION RATE > 60.0 (>60); GLUCOSE, FASTING 104 MG/DL (60-100); HDL CHOLESTEROL 34.2 MG/DL (>40); LDL CHOLESTEROL 38.6 MG/DL (<100); NON-HDL-C 85.8 MG/DL; POTASSIUM SERUM 4.2 MMOL/L (3.5-5.1); SODIUM LEVEL 139 MMOL/L (136-145); TOTAL PROTEIN 6.7 G/DL (5.7-8.2); TRIGLYCERIDES LEVEL 236 MG/DL (<150)
== END ==
LOC: M LAB REF 12:49
PROVIDERS: ATTEND Family Medicine Addiction Medicine
DX: E11.69 Type 2 diabetes mellitus with other specified complication (principal)

== ENCOUNTER → 2023-03-08 | Outpatient (CLI) | payer OTHER ==
[2023-03-08 08:34] LABS: BASO # 0.1 10^3/uL (0.0-0.2); EOS # 0.3 10^3/uL (0.0-0.5); EOS % 5.2 % (0.0-3.0); HEMATOCRIT 48.4 % (42.0-52.0); HEMOGLOBIN 16.6 g/dl (13.5-17.5); LYMPH # 1.4 10^3/uL (1.5-5.0); LYMPH % 24.5 % (24.0-44.0); MEAN CORPUSCULAR HEMOGLOBIN 30.3 pg (27.0-33.0); MEAN CORPUSCULAR HGB CONC 34.3 g/dl (32.0-36.5); MEAN CORPUSCULAR VOLUME 88.5 fl (80.0-96.0); MONO # 0.6 10^3/uL (0.0-0.8); MONO % 9.6 % (2.0-8.0); NEUTROPHILS # 3.4 10^3/uL (1.5-8.5); NEUTROPHILS % 59.4 % (36.0-66.0); PLATELET COUNT, AUTOMATED 179 10^3/uL (150-450); RED BLOOD COUNT 5.47 10^6/uL (4.30-6.10); WHITE BLOOD COUNT 5.8 10^3/uL (4.0-10.0)
[2023-03-08 09:08] LABS: ALBUMIN 3.8 G/DL (3.2-5.2); ALKALINE PHOSPHATASE 135 U/L (46-116); ALT/SGPT 28 U/L (7.0-40); AST/SGOT 20 U/L (<34); BILIRUBIN,TOTAL 0.3 MG/DL (0.3-1.2); BLOOD UREA NITROGEN 15 MG/DL (9-23); CALCIUM LEVEL 9.2 MG/DL (8.5-10.1); CARBON DIOXIDE LEVEL 26 MMOL/L (20-31); CHLORIDE LEVEL 105 MMOL/L (98-107); GLOMERULAR FILTRATION RATE > 60.0 (>60); GLUCOSE, FASTING 110 MG/DL (60-100); POTASSIUM SERUM 4.3 MMOL/L (3.5-5.1); RHEUMATOID FACTOR QUANT 4.7 IU/ML (<14); SODIUM LEVEL 137 MMOL/L (136-145); TOTAL PROTEIN 7.1 G/DL (5.7-8.2)
[2023-03-08 09:11] LABS: FOLATE 13.8 NG/ML (>5.4); THYROID STIMULATING HORMONE 2.063 uIU/ML (0.55-4.78)
[2023-03-08 09:12] LABS: VITAMIN B12 LEVEL 693 PG/ML (211-911)
[2023-03-08 09:28] LABS: ERYTHROCYTE SEDIMENTATION RATE 21 mm/hr (0-15)
[2023-03-12 17:09] LABS: ANTINUCLEAR ANTIBODIES DIRECT Negative (Negative); CERULOPLASMIN 30.8 mg/dL (16.0-31.0); COPPER PLASMA 134 ug/dL (69-132); OXCARBAZEPINE 8 ug/mL (10-35); VITAMIN B1 LEVEL WHOLE BLOOD 169.1 nmol/L (66.5-200.0); VITAMIN B6,PYRIDOXAL PHOSPHATE 7.8 ug/L (3.4-65.2); VITAMIN E(ALPHA TOCOPHEROL) 9.5 mg/L (5.9-19.4); VITAMIN E(GAMMA TOCOPHEROL) 0.8 mg/L (0.7-4.9)
== END ==
LOC: M LAB 07:46
PROVIDERS: ATTEND Psychiatry & Neurology Neurology
DX: R56.9 Unspecified convulsions (principal); G62.9 Polyneuropathy, unspecified; E11.9 Type 2 diabetes mellitus without complications

== ENCOUNTER 2023-04-06 15:13 | Observation (INO) | payer OTHER ==
[~2023-04-06] VITALS: Ht 170.2 cm; Wt 106.3 kg
[2023-04-06 16:22] LABS: BASO # 0.1 10^3/uL (0.0-0.2); EOS # 0.2 10^3/uL (0.0-0.5); EOS % 3.5 % (0.0-3.0); HEMATOCRIT 50.3 % (42.0-52.0); HEMOGLOBIN 18.1 g/dl (13.5-17.5); LYMPH # 1.2 10^3/uL (1.5-5.0); LYMPH % 16.7 % (24.0-44.0); MEAN CORPUSCULAR VOLUME 88.9 fl (80.0-96.0); MONO # 0.7 10^3/uL (0.0-0.8); MONO % 9.4 % (2.0-8.0); NEUTROPHILS # 4.8 10^3/uL (1.5-8.5); NEUTROPHILS % 69.1 % (36.0-66.0); PLATELET COUNT, AUTOMATED 195 10^3/uL (150-450); RED BLOOD COUNT 5.66 10^6/uL (4.30-6.10); WHITE BLOOD COUNT 6.9 10^3/uL (4.0-10.0)
[2023-04-06 16:52] LABS: BLOOD UREA NITROGEN 13 MG/DL (9-23); CALCIUM LEVEL 9.1 MG/DL (8.5-10.1); CARBON DIOXIDE LEVEL 28 MMOL/L (20-31); CHLORIDE LEVEL 104 MMOL/L (98-107); CK-MB VALUE MASS 16.1 NG/ML (<3.6); CPK CREATINE PHOSPHOKINASE 265 U/L (46-171); CREATININE FOR GFR 0.66 MG/DL (0.70-1.30); GLOMERULAR FILTRATION RATE > 60.0 (>60); GLUCOSE, FASTING 157 MG/DL (60-100); MAGNESIUM LEVEL 1.9 MG/DL (1.8-2.4); MB/CK RELATIVE INDEX 6.07 (< OR =4); POTASSIUM SERUM 3.8 MMOL/L (3.5-5.1); SODIUM LEVEL 136 MMOL/L (136-145)
[2023-04-06 16:54] LABS: FREE T4 0.71 NG/DL (0.89-1.76); THYROID STIMULATING HORMONE 1.479 uIU/ML (0.55-4.78)
[2023-04-06] MEDS ORDERED: ACETAMINOPHEN TAB 650MG DOSE (2X325MG) PO PRN (19:25)
[2023-04-06] MEDS ORDERED: diazePAM 5MG TABLET PO ONE (19:25)
[2023-04-06 19:46] LABS: CHOLESTEROL LEVEL 125 MG/DL (<200); CHOLESTEROL RISK RATIO 3.23 (<5); HDL CHOLESTEROL 38.6 MG/DL (>40); LDL CHOLESTEROL 41.6 MG/DL (<100); NON-HDL-C 86.4 MG/DL; TRIGLYCERIDES LEVEL 224 MG/DL (<150)
[2023-04-06 19:57] LABS: HEMOGLOBIN A1c 6.1 % (4.0-6.0)
[2023-04-06] MEDS ORDERED: LEXA1TAB PO (20:19)
[2023-04-06] MEDS ORDERED: GABA600T4 PO (20:19)
[2023-04-06] MEDS ORDERED: TOPI200T7 PO (20:19)
[2023-04-06] MEDS ORDERED: METH-1164 PO (20:19)
[2023-04-06] MEDS ORDERED: ATOM18CA PO (20:19)
[2023-04-06] MEDS ORDERED: HOME MED LIST COMPLETE! XX SCH (20:20)
[2023-04-06 20:41] LABS: RSV AMPLIFICATION NEGATIVE (NEGATIVE)
[2023-04-06] MEDS ORDERED: PRAZOSIN 1 MG CAP PO SCH (21:00)
[2023-04-06] MEDS ORDERED: methocarbamoL 500 MG TAB PO PRN (21:00)
[2023-04-06] MEDS: TOPIRAMATE (TopAMAX) 100 MG TAB PO SCH (21:28)
[2023-04-06] MEDS: OXcarbazepine 300 MG TAB PO SCH (21:28)
[2023-04-06] MEDS: GABAPENTIN 300 MG CAP PO SCH (21:29)
[2023-04-06 21:30] VITALS: BP 119/60
[2023-04-06 23:00] VITALS: BP_SYST 126; BP_SYST 138; BP_DIAS 89; BP_DIAS 90
[2023-04-07 05:16] LABS: HEMATOCRIT 47.4 % (42.0-52.0); HEMOGLOBIN 16.2 g/dl (13.5-17.5); MEAN CORPUSCULAR HEMOGLOBIN 30.3 pg (27.0-33.0); MEAN CORPUSCULAR HGB CONC 34.2 g/dl (32.0-36.5); MEAN CORPUSCULAR VOLUME 88.8 fl (80.0-96.0); PLATELET COUNT, AUTOMATED 159 10^3/uL (150-450); RED BLOOD COUNT 5.34 10^6/uL (4.30-6.10); WHITE BLOOD COUNT 7.5 10^3/uL (4.0-10.0)
[2023-04-07 05:52] LABS: ALBUMIN 3.3 G/DL (3.2-5.2); ALKALINE PHOSPHATASE 128 U/L (46-116); ALT/SGPT 32 U/L (7.0-40); AST/SGOT 23 U/L (<34); BILIRUBIN,TOTAL 0.5 MG/DL (0.3-1.2); BLOOD UREA NITROGEN 12 MG/DL (9-23); CALCIUM LEVEL 8.3 MG/DL (8.5-10.1); CARBON DIOXIDE LEVEL 27 MMOL/L (20-31); CHLORIDE LEVEL 105 MMOL/L (98-107); CREATININE FOR GFR 0.75 MG/DL (0.70-1.30); GLOMERULAR FILTRATION RATE > 60.0 (>60); GLUCOSE, FASTING 104 MG/DL (60-100); MAGNESIUM LEVEL 1.8 MG/DL (1.8-2.4); POTASSIUM SERUM 3.8 MMOL/L (3.5-5.1); SODIUM LEVEL 139 MMOL/L (136-145); TOTAL PROTEIN 6.3 G/DL (5.7-8.2)
[2023-04-07 06:00] VITALS: BP 126/62
[2023-04-07] MEDS: GABAPENTIN 300 MG CAP PO SCH (08:12)
[2023-04-07] MEDS: OXcarbazepine 300 MG TAB PO SCH (08:12)
[2023-04-07] MEDS: TOPIRAMATE (TopAMAX) 100 MG TAB PO SCH (08:12)
[2023-04-07] MEDS ORDERED: ESCITALOPRAM OXALATE 10 MG TAB (LEXAPRO) PO SCH (09:00)
[2023-04-07] MEDS ORDERED: ARIPiprazole 15 MG TAB (AbiLIFY) PO SCH (09:00)
[2023-04-07] MEDS ORDERED: MONTELUKAST 10 MG TAB PO SCH (09:00)
[2023-04-11 19:08] LABS: OXCARBAZEPINE 18 ug/mL (10-35); TOPIRAMATE LEVEL 8.6 ug/mL (2.0-25.0)
== END 2023-04-07 14:44 | disposition home or self-care (01) ==
LOC: EDBD 15:13 → M ED 15:13 → M ED INP 19:24 → EEVIPCON 19:24 → M MSPAV 22:55
PROVIDERS: ADMIT Internal Medicine; ATTEND Internal Medicine
DX: R55 Syncope and collapse (principal); G40.909 Epilepsy, unspecified, not intractable, without status epilepticus; E11.9 Type 2 diabetes mellitus without complications; F31.9 Bipolar disorder, unspecified; F90.9 Attention-deficit hyperactivity disorder, unspecified type; K21.9 Gastro-esophageal reflux disease without esophagitis; L40.9 Psoriasis, unspecified; Z79.899 Other long term (current) drug therapy; Z88.8 Allergy status to other drugs, medicaments and biological substances; Z88.2 Allergy status to sulfonamides

== ENCOUNTER → 2023-05-09 | Outpatient (REF) | payer OTHER, MEDICAID ==
[~2023-05-09] MED LIST changes: +ATOM18CA PO; +GABA600T4 PO; +METH-1164 PO; +TOPI200T7 PO
[2023-05-09 13:28] LABS: ALBUMIN 3.6 G/DL (3.2-5.2); ALKALINE PHOSPHATASE 117 U/L (46-116); ALT/SGPT 30 U/L (7.0-40); AST/SGOT 14 U/L (<34); BILIRUBIN,TOTAL 0.3 MG/DL (0.3-1.2); BLOOD UREA NITROGEN 15 MG/DL (9-23); CALCIUM LEVEL 8.5 MG/DL (8.5-10.1); CARBON DIOXIDE LEVEL 26 MMOL/L (20-31); CHLORIDE LEVEL 108 MMOL/L (98-107); CHOLESTEROL LEVEL 128 MG/DL (<200); CHOLESTEROL RISK RATIO 3.56 (<5); CREATININE FOR GFR 0.73 MG/DL (0.70-1.30); GLOMERULAR FILTRATION RATE > 60.0 (>60); GLUCOSE, FASTING 126 MG/DL (60-100); HDL CHOLESTEROL 35.9 MG/DL (>40); LDL CHOLESTEROL 67.1 MG/DL (<100); NON-HDL-C 92.1 MG/DL; POTASSIUM SERUM 4.3 MMOL/L (3.5-5.1); SODIUM LEVEL 142 MMOL/L (136-145); TOTAL PROTEIN 6.6 G/DL (5.7-8.2); TRIGLYCERIDES LEVEL 125 MG/DL (<150)
[2023-05-09 13:30] LABS: THYROID STIMULATING HORMONE 0.987 uIU/ML (0.55-4.78)
[2023-05-09 14:48] LABS: HEMOGLOBIN A1c 6.1 % (4.0-6.0)
== END ==
LOC: M LAB REF 12:08
PROVIDERS: ATTEND Family Medicine Addiction Medicine
DX: E11.69 Type 2 diabetes mellitus with other specified complication (principal)

== ENCOUNTER → 2023-06-23 | Outpatient (CLI) | payer OTHER ==
[2023-06-23 09:21] LABS: BASO % 0.6 % (0.0-1.0); EOS # 0.1 10^3/uL (0.0-0.5); HEMATOCRIT 51.4 % (42.0-52.0); HEMOGLOBIN 17.7 g/dl (13.5-17.5); LYMPH # 1.1 10^3/uL (1.5-5.0); LYMPH % 15.7 % (24.0-44.0); MEAN CORPUSCULAR HEMOGLOBIN 30.4 pg (27.0-33.0); MEAN CORPUSCULAR HGB CONC 34.4 g/dl (32.0-36.5); MEAN CORPUSCULAR VOLUME 88.2 fl (80.0-96.0); MONO # 0.7 10^3/uL (0.0-0.8); MONO % 9.2 % (2.0-8.0); NEUTROPHILS # 5.1 10^3/uL (1.5-8.5); NEUTROPHILS % 72.1 % (36.0-66.0); PLATELET COUNT, AUTOMATED 164 10^3/uL (150-450); RED BLOOD COUNT 5.83 10^6/uL (4.30-6.10); WHITE BLOOD COUNT 7.1 10^3/uL (4.0-10.0)
[2023-06-23 09:47] LABS: URIC ACID 3.7 MG/DL (3.7-9.2)
[2023-06-23 09:50] LABS: RHEUMATOID FACTOR QUANT 5.3 IU/ML (<14)
[2023-06-23 09:51] LABS: ALBUMIN 4.1 G/DL (3.2-5.2); ALKALINE PHOSPHATASE 112 U/L (46-116); ALT/SGPT 28 U/L (7.0-40); AST/SGOT 11 U/L (<34); BILIRUBIN,TOTAL 0.5 MG/DL (0.3-1.2); BLOOD UREA NITROGEN 7 MG/DL (9-23); CALCIUM LEVEL 8.7 MG/DL (8.5-10.1); CARBON DIOXIDE LEVEL 29 MMOL/L (20-31); CHLORIDE LEVEL 98 MMOL/L (98-107); COMPLEMENT C3 154.2 MG/DL (84.0-160.0); COMPLEMENT C4 40.7 MG/DL (12-36); CREATININE FOR GFR 0.61 MG/DL (0.70-1.30); GLOMERULAR FILTRATION RATE > 60.0 (>60); GLUCOSE, FASTING 130 MG/DL (60-100); POTASSIUM SERUM 4.1 MMOL/L (3.5-5.1); SODIUM LEVEL 134 MMOL/L (136-145); TOTAL PROTEIN 7.2 G/DL (5.7-8.2)
[2023-06-23 10:44] LABS: ERYTHROCYTE SEDIMENTATION RATE 12 mm/hr (0-15)
== END ==
LOC: M LAB 08:33
PROVIDERS: ATTEND Physician Assistant
DX: H15.103 Unspecified episcleritis, bilateral (principal); H15.003 Unspecified scleritis, bilateral

== ENCOUNTER → 2023-07-15 | Outpatient (CLI) | payer OTHER ==
[2023-07-15 09:03] LABS: HEMOGLOBIN A1c 6.1 % (4.0-6.0)
[2023-07-15 09:18] LABS: FOLATE 7.94 NG/ML (>5.4)
[2023-07-15 09:19] LABS: TOTAL 25(OH) VITAMIN D 31.1 NG/ML (20.0-100.0)
== END ==
LOC: M LAB 08:10
PROVIDERS: ATTEND Psychiatry & Neurology Neurology
DX: E11.9 Type 2 diabetes mellitus without complications (principal); G60.9 Hereditary and idiopathic neuropathy, unspecified; D51.9 Vitamin B12 deficiency anemia, unspecified

== ENCOUNTER → 2023-11-16 | Outpatient (REF) | payer OTHER ==
[2023-11-16 13:58] LABS: ALBUMIN 3.8 G/DL (3.2-5.2); ALKALINE PHOSPHATASE 120 U/L (46-116); ALT/SGPT 29 U/L (7.0-40); AST/SGOT 17 U/L (<34); BILIRUBIN,TOTAL 0.5 MG/DL (0.3-1.2); BLOOD UREA NITROGEN 10 MG/DL (9-23); CARBON DIOXIDE LEVEL 26 MMOL/L (20-31); CHLORIDE LEVEL 100 MMOL/L (98-107); CHOLESTEROL LEVEL 111 MG/DL (<200); CHOLESTEROL RISK RATIO 3.14 (<5); CREATININE FOR GFR 0.63 MG/DL (0.70-1.30); GLOMERULAR FILTRATION RATE > 60.0 (>60); GLUCOSE, FASTING 97 MG/DL (60-100); HDL CHOLESTEROL 35.3 MG/DL (>40); LDL CHOLESTEROL 44.7 MG/DL (<100); NON-HDL-C 75.7 MG/DL; POTASSIUM SERUM 4.1 MMOL/L (3.5-5.1); SODIUM LEVEL 131 MMOL/L (136-145); THYROID STIMULATING HORMONE 1.137 uIU/ML (0.55-4.78); TOTAL PROTEIN 6.7 G/DL (5.7-8.2); TRIGLYCERIDES LEVEL 155 MG/DL (<150)
== END ==
LOC: M LAB REF 12:20
PROVIDERS: ATTEND Family Medicine Addiction Medicine
DX: E11.69 Type 2 diabetes mellitus with other specified complication (principal)

== ENCOUNTER → 2023-11-24 | Outpatient (REF) | payer OTHER, MEDICAID ==
[2023-11-25 13:09] LABS: SSA SJOGRENS A <0.2 AI (0.0-0.9); SSB SJOGRENS B <0.2 AI (0.0-0.9)
== END ==
LOC: M SFHCRHEU 10:04
PROVIDERS: ATTEND Internal Medicine
DX: H04.123 Dry eye syndrome of bilateral lacrimal glands (principal); Z86.69 Personal history of other diseases of the nervous system and sense organs

== ENCOUNTER 2023-12-13 07:17 | Emergency (ER) | payer MEDICAID, OTHER ==
[~2023-12-13] VITALS: Ht 170.2 cm; Wt 112.0 kg
[2023-12-13 07:17] VITALS: BP 131/77; TEMP 96.9; O2SAT 99
[2023-12-13] MEDS ORDERED: PREG100C2 (07:29)
[2023-12-13] MEDS ORDERED: OMEP40CA4 PO (07:29)
[2023-12-13] MEDS ORDERED: ATOR40TA75 (07:29)
[2023-12-13] MEDS ORDERED: CYCLOBENZAPRINE 10MG TABLET PO ONE (07:45)
[2023-12-13] MEDS ORDERED: IBUPROFEN 600MG TAB PO ONE (07:45)
[2023-12-13] MEDS ORDERED: IBUP-1022 PO (08:22)
[2023-12-13] MEDS ORDERED: MEDR4PAK PO (08:22)
[2023-12-13] MEDS ORDERED: METH-1164 PO (08:22)
== END 2023-12-13 08:35 | disposition home or self-care (01) ==
LOC: M ED 07:17
DX: S16.1XXA Strain of muscle, fascia and tendon at neck level, initial encounter (principal); E11.9 Type 2 diabetes mellitus without complications; K21.9 Gastro-esophageal reflux disease without esophagitis; G60.9 Hereditary and idiopathic neuropathy, unspecified; Z88.2 Allergy status to sulfonamides; Z88.8 Allergy status to other drugs, medicaments and biological substances; Z79.899 Other long term (current) drug therapy; Z79.02 Long term (current) use of antithrombotics/antiplatelets; Z79.83 Long term (current) use of bisphosphonates; Y92.9 Unspecified place or not applicable; Y93.9 Activity, unspecified; Y99.9 Unspecified external cause status

== ENCOUNTER → 2023-12-16 | Outpatient (CLI) | payer OTHER, MEDICAID ==
[~2023-12-16] MED LIST changes: +ATOR40TA75; +IBUP-1022 PO; +MEDR4PAK PO; +OMEP40CA4 PO; +PREG100C2
[2023-12-16 13:29] LABS: BASO % 0.5 % (0.0-1.0); EOS % 0.7 % (0.0-3.0); HEMATOCRIT 44.1 % (42.0-52.0); HEMOGLOBIN 15.7 g/dl (13.5-17.5); LYMPH # 1.2 10^3/uL (1.5-5.0); LYMPH % 20.3 % (24.0-44.0); MEAN CORPUSCULAR HEMOGLOBIN 30.4 pg (27.0-33.0); MEAN CORPUSCULAR HGB CONC 35.6 g/dl (32.0-36.5); MEAN CORPUSCULAR VOLUME 85.5 fl (80.0-96.0); MONO # 0.3 10^3/uL (0.0-0.8); MONO % 5.7 % (2.0-8.0); NEUTROPHILS # 4.3 10^3/uL (1.5-8.5); NEUTROPHILS % 72.5 % (36.0-66.0); PLATELET COUNT, AUTOMATED 193 10^3/uL (150-450); RED BLOOD COUNT 5.16 10^6/uL (4.30-6.10)
[2023-12-16 14:08] LABS: ALBUMIN 3.9 G/DL (3.2-5.2); ALKALINE PHOSPHATASE 111 U/L (46-116); ALT/SGPT 29 U/L (7.0-40); AST/SGOT 18 U/L (<34); BILIRUBIN,TOTAL 0.4 MG/DL (0.3-1.2); BLOOD UREA NITROGEN 7 MG/DL (9-23); CALCIUM LEVEL 8.9 MG/DL (8.5-10.1); CARBON DIOXIDE LEVEL 27 MMOL/L (20-31); CHLORIDE LEVEL 97 MMOL/L (98-107); CREATININE FOR GFR 0.57 MG/DL (0.70-1.30); FREE T4 0.72 NG/DL (0.89-1.76); GLOMERULAR FILTRATION RATE > 60.0 (>60); GLUCOSE, FASTING 105 MG/DL (60-100); IRON (FE) 68 UG/DL (65-175); PERCENT SATURATION 18.7 % (19.7-50.0); POTASSIUM SERUM 3.7 MMOL/L (3.5-5.1); SODIUM LEVEL 128 MMOL/L (136-145); THYROID STIMULATING HORMONE 1.297 uIU/ML (0.55-4.78); TOTAL IRON BINDING CAPACITY 363 UG/DL (250-425); TOTAL PROTEIN 7.1 G/DL (5.7-8.2); VITAMIN B12 LEVEL 597 PG/ML (211-911)
== END ==
LOC: M LAB 12:01
PROVIDERS: ATTEND Physician Assistant
DX: L21.9 Seborrheic dermatitis, unspecified (principal)

== ENCOUNTER 2024-02-05 16:01 | Emergency (ER) | payer OTHER ==
[~2024-02-05] VITALS: Ht 170.2 cm; Wt 105.5 kg
[2024-02-05 19:18] LABS: BASO # 0.1 10^3/uL (0.0-0.2); BASO % 0.6 % (0.0-1.0); EOS # 0.1 10^3/uL (0.0-0.5); EOS % 0.8 % (0.0-3.0); HEMATOCRIT 51.9 % (42.0-52.0); HEMOGLOBIN 18.2 g/dl (13.5-17.5); LYMPH # 0.3 10^3/uL (1.5-5.0); LYMPH % 4.3 % (24.0-44.0); MEAN CORPUSCULAR HEMOGLOBIN 30.6 pg (27.0-33.0); MEAN CORPUSCULAR HGB CONC 35.1 g/dl (32.0-36.5); MEAN CORPUSCULAR VOLUME 87.4 fl (80.0-96.0); MONO # 0.3 10^3/uL (0.0-0.8); MONO % 4.4 % (2.0-8.0); NEUTROPHILS # 6.9 10^3/uL (1.5-8.5); NEUTROPHILS % 89.8 % (36.0-66.0); PLATELET COUNT, AUTOMATED 167 10^3/uL (150-450); RED BLOOD COUNT 5.94 10^6/uL (4.30-6.10); WHITE BLOOD COUNT 7.7 10^3/uL (4.0-10.0)
[2024-02-05] MEDS: NS 1,000 ML IV ONE (19:18)
[2024-02-05 20:43] LABS: LIPASE 27 U/L (12-53)
[2024-02-05 20:47] LABS: ALBUMIN 3.5 G/DL (3.2-5.2); ALKALINE PHOSPHATASE 107 U/L (46-116); ALT/SGPT 27 U/L (7.0-40); AST/SGOT 13 U/L (<34); BILIRUBIN,DIRECT 0.2 MG/DL (<0.4); BILIRUBIN,TOTAL 0.6 MG/DL (0.3-1.2); BLOOD UREA NITROGEN 13 MG/DL (9-23); CARBON DIOXIDE LEVEL 26 MMOL/L (20-31); CHLORIDE LEVEL 107 MMOL/L (98-107); CREATININE FOR GFR 0.69 MG/DL (0.70-1.30); GLOMERULAR FILTRATION RATE > 60.0 (>60); GLUCOSE, FASTING 118 MG/DL (60-100); SODIUM LEVEL 139 MMOL/L (136-145); TOTAL PROTEIN 6.2 G/DL (5.7-8.2)
[2024-02-05 20:59] VITALS: BP 135/58; TEMP 98.2; O2SAT 99
== END 2024-02-05 21:16 | disposition home or self-care (01) ==
LOC: M ED 16:01
DX: R11.2 Nausea with vomiting, unspecified (principal); R19.7 Diarrhea, unspecified; E11.9 Type 2 diabetes mellitus without complications; K21.9 Gastro-esophageal reflux disease without esophagitis; Z88.0 Allergy status to penicillin; Z88.8 Allergy status to other drugs, medicaments and biological substances; Z79.02 Long term (current) use of antithrombotics/antiplatelets; Z79.83 Long term (current) use of bisphosphonates; Z79.899 Other long term (current) drug therapy

== ENCOUNTER → 2024-02-20 | Outpatient (REF) | payer OTHER | LOC: M LAB REF 12:18 | PROVIDERS: ATTEND Family Medicine Addiction Medicine | DX: R14.3 Flatulence (principal) ==

== ENCOUNTER → 2024-03-14 | Outpatient (REF) | payer OTHER, MEDICAID ==
[2024-03-14 18:14] LABS: APPEARANCE, URINE CLEAR (CLEAR); BACTERIA, URINE AUTO NEGATIVE (NEGATIVE); BILIRUBIN, URINE AUTO NEGATIVE (NEGATIVE); BLOOD, URINE BLOOD NEGATIVE (NEGATIVE); COLOR, URINE YELLOW (YELLOW); GLUCOSE, URINE (UA) AUTO NEGATIVE (NEGATIVE); KETONE, URINE AUTO NEGATIVE (NEGATIVE); LEUKOCYTE ESTERASE, URINE AUTO NEGATIVE (NEGATIVE); NITRITE, URINE AUTO NEGATIVE (NEGATIVE); PROTEIN, URINE AUTO NEGATIVE (NEGATIVE); RBC, URINE AUTO 0 /HPF (0-3); SQUAMOUS EPITHELIAL CELL UR AU 0 /HPF (0-6); UROBILINOGEN, URINE AUTO 0.2 mg/dL (0.0-2.0); WBC, URINE AUTO 0 /HPF (0-3)
== END ==
LOC: M LAB REF 17:54
PROVIDERS: ATTEND Family Medicine Addiction Medicine
DX: R39.9 Unspecified symptoms and signs involving the genitourinary system (principal)

== ENCOUNTER → 2024-03-21 | Outpatient (CLI) | payer OTHER ==
[2024-03-21 08:35] LABS: BASO % 0.7 % (0.0-1.0); EOS # 0.1 10^3/uL (0.0-0.5); EOS % 1.6 % (0.0-3.0); HEMATOCRIT 46.9 % (42.0-52.0); HEMOGLOBIN 16.2 g/dl (13.5-17.5); LYMPH % 17.6 % (24.0-44.0); MEAN CORPUSCULAR HEMOGLOBIN 30.9 pg (27.0-33.0); MEAN CORPUSCULAR HGB CONC 34.5 g/dl (32.0-36.5); MEAN CORPUSCULAR VOLUME 89.5 fl (80.0-96.0); MONO # 0.4 10^3/uL (0.0-0.8); MONO % 7.4 % (2.0-8.0); NEUTROPHILS % 72.3 % (36.0-66.0); PLATELET COUNT, AUTOMATED 149 10^3/uL (150-450); RED BLOOD COUNT 5.24 10^6/uL (4.30-6.10); WHITE BLOOD COUNT 5.6 10^3/uL (4.0-10.0)
[2024-03-21 09:10] LABS: ALBUMIN 3.5 G/DL (3.2-5.2); ALKALINE PHOSPHATASE 105 U/L (46-116); ALT/SGPT 35 U/L (7.0-40); AST/SGOT 18 U/L (<34); BILIRUBIN,DIRECT 0.1 MG/DL (<0.4); BILIRUBIN,TOTAL 0.4 MG/DL (0.3-1.2); BLOOD UREA NITROGEN 13 MG/DL (9-23); CALCIUM LEVEL 8.8 MG/DL (8.5-10.1); CARBON DIOXIDE LEVEL 26 MMOL/L (20-31); CHLORIDE LEVEL 105 MMOL/L (98-107); CREATININE FOR GFR 0.81 MG/DL (0.70-1.30); GLOMERULAR FILTRATION RATE > 60.0 (>60); GLUCOSE, FASTING 159 MG/DL (60-100); POTASSIUM SERUM 3.8 MMOL/L (3.5-5.1); SODIUM LEVEL 138 MMOL/L (136-145); TOTAL PROTEIN 6.3 G/DL (5.7-8.2)
[2024-03-21 09:17] LABS: HEPATITIS B SURFACE ANTIBODY POSITIVE (POSITIVE)
[2024-03-21 09:19] LABS: ERYTHROCYTE SEDIMENTATION RATE 16 mm/hr (0-15)
[2024-03-21 09:50] LABS: HEPATITIS C VIRUS ABY INDEX < 0.02 INDEX (<0.8)
== END ==
LOC: M LAB 07:29
PROVIDERS: ATTEND Internal Medicine
DX: Z11.59 Encounter for screening for other viral diseases (principal)

== ENCOUNTER → 2024-06-18 | Outpatient (REF) | payer OTHER ==
[~2024-06-18] MED LIST changes: -ATOR40TA75; +ATOR40TA75 PO; +LAMO25TA4 PO; +METH2.5T48 PO; +OMEP1CAP73 PO
[2024-06-18 13:50] LABS: ALBUMIN 3.9 G/DL (3.2-5.2); ALKALINE PHOSPHATASE 122 U/L (46-116); ALT/SGPT 24 U/L (7.0-40); AST/SGOT 12 U/L (<34); BILIRUBIN,TOTAL 0.4 MG/DL (0.3-1.2); BLOOD UREA NITROGEN 7 MG/DL (9-23); CALCIUM LEVEL 8.9 MG/DL (8.5-10.1); CARBON DIOXIDE LEVEL 26 MMOL/L (20-31); CHLORIDE LEVEL 104 MMOL/L (98-107); CHOLESTEROL LEVEL 98 MG/DL (<200); CHOLESTEROL RISK RATIO 2.67 (<5); CREATININE FOR GFR 0.71 MG/DL (0.70-1.30); GLOMERULAR FILTRATION RATE > 60.0 (>60); GLUCOSE, FASTING 104 MG/DL (60-100); HDL CHOLESTEROL 36.7 MG/DL (>40); LDL CHOLESTEROL 35.1 MG/DL (<100); NON-HDL-C 61.3 MG/DL; POTASSIUM SERUM 4.1 MMOL/L (3.5-5.1); SODIUM LEVEL 136 MMOL/L (136-145); TOTAL PROTEIN 6.6 G/DL (5.7-8.2); TRIGLYCERIDES LEVEL 131 MG/DL (<150)
[2024-06-18 13:52] LABS: THYROID STIMULATING HORMONE 1.217 uIU/ML (0.55-4.78)
== END ==
LOC: M LAB REF 12:36
PROVIDERS: ATTEND Family Medicine Addiction Medicine
DX: E11.69 Type 2 diabetes mellitus with other specified complication (principal)

== ENCOUNTER 2024-06-28 12:17 | Day surgery (SDC) | payer OTHER ==
[~2024-06-28] VITALS: Ht 170.2 cm; Wt 100.0 kg
[2024-06-28] MEDS: NS 1,000 ML IV ONE (13:38)
[2024-06-28] MEDS ORDERED: propofoL 200 MG/20 ML VIAL As Ordered ONE (15:03)
[2024-06-28] MEDS ORDERED: LIDOCAINE 2% 100MG/5ML SDV (FOR ANES.) As Ordered ONE (15:36)
[2024-06-28 15:50] VITALS: TEMP 97.1
[2024-06-28 16:10] VITALS: BP 107/50; O2SAT 98
[2024-06-29] MEDS ORDERED: DICY10SO PO (11:43)
== END 2024-06-28 17:00 | disposition home or self-care (01) ==
LOC: M OPP 12:17
PROVIDERS: ATTEND Internal Medicine Gastroenterology
DX: K63.5 Polyp of colon (principal); K64.8 Other hemorrhoids; R19.4 Change in bowel habit; R10.84 Generalized abdominal pain; E11.9 Type 2 diabetes mellitus without complications; G47.9 Sleep disorder, unspecified; Z79.02 Long term (current) use of antithrombotics/antiplatelets; Z79.51 Long term (current) use of inhaled steroids; Z79.891 Long term (current) use of opiate analgesic; Z79.899 Other long term (current) drug therapy; Z88.1 Allergy status to other antibiotic agents; Z88.2 Allergy status to sulfonamides; Z88.8 Allergy status to other drugs, medicaments and biological substances

== ENCOUNTER 2024-06-29 04:13 | Emergency (ER) | payer OTHER ==
[~2024-06-29] VITALS: Ht 170.2 cm; Wt 100.1 kg
[2024-06-29 06:51] LABS: BASO # 0.1 10^3/uL (0.0-0.2); BASO % 0.7 % (0.0-1.0); EOS # 0.2 10^3/uL (0.0-0.5); EOS % 2.4 % (0.0-3.0); HEMATOCRIT 46.1 % (42.0-52.0); HEMOGLOBIN 15.8 g/dl (13.5-17.5); LYMPH # 1.2 10^3/uL (1.5-5.0); LYMPH % 16.7 % (24.0-44.0); MEAN CORPUSCULAR HEMOGLOBIN 30.6 pg (27.0-33.0); MEAN CORPUSCULAR HGB CONC 34.3 g/dl (32.0-36.5); MEAN CORPUSCULAR VOLUME 89.2 fl (80.0-96.0); MONO # 0.7 10^3/uL (0.0-0.8); MONO % 9.8 % (2.0-8.0); NEUTROPHILS # 4.9 10^3/uL (1.5-8.5); NEUTROPHILS % 70.3 % (36.0-66.0); PLATELET COUNT, AUTOMATED 159 10^3/uL (150-450); RED BLOOD COUNT 5.17 10^6/uL (4.30-6.10)
[2024-06-29] MEDS ORDERED: ISOVUE-370 76% 100ML VIAL As Ordered ONE (07:14)
[2024-06-29 07:19] LABS: ALBUMIN 3.9 G/DL (3.2-5.2); BILIRUBIN,DIRECT 0.2 MG/DL (<0.4); BILIRUBIN,TOTAL 0.4 MG/DL (0.3-1.2); TOTAL PROTEIN 6.8 G/DL (5.7-8.2)
[2024-06-29] MEDS: KETOROLAC 30 MG/ML 1ML VIAL IV ONE (09:02)
[2024-06-29] MEDS ORDERED: DICY10SO PO (11:43)
[2024-06-29 12:00] VITALS: BP 110/59; TEMP 97.1; O2SAT 97
== END 2024-06-29 12:15 | disposition home or self-care (01) ==
LOC: M ED 04:13 → EDBD 04:13 → M ED 12:15
DX: R10.9 Unspecified abdominal pain (principal); N20.0 Calculus of kidney; K42.9 Umbilical hernia without obstruction or gangrene; E11.9 Type 2 diabetes mellitus without complications; F41.9 Anxiety disorder, unspecified; F32.A Depression, unspecified; G47.33 Obstructive sleep apnea (adult) (pediatric); G40.909 Epilepsy, unspecified, not intractable, without status epilepticus; Z88.2 Allergy status to sulfonamides; Z88.8 Allergy status to other drugs, medicaments and biological substances; Z79.02 Long term (current) use of antithrombotics/antiplatelets; Z79.83 Long term (current) use of bisphosphonates; Z79.899 Other long term (current) drug therapy
CPT/HCPCS: 74177; 80047; 80076; 83690; 85025; 93041; 96374; 99285; J1885; Q9967

== ENCOUNTER → 2024-09-24 | Outpatient (REF) | payer OTHER ==
[~2024-09-24] MED LIST changes: +DICY10SO PO; +GABA-1172 PO; +GABA-1490 PO; -GABA-282 PO; -GABA600T4 PO
[2024-09-24 14:07] LABS: ALBUMIN 3.6 G/DL (3.2-5.2); ALKALINE PHOSPHATASE 121 U/L (40-129); ALT/SGPT 22 U/L (7.0-40); AST/SGOT 10 U/L (<34); BILIRUBIN,TOTAL 0.4 MG/DL (0.3-1.2); BLOOD UREA NITROGEN 9 MG/DL (9-23); CALCIUM LEVEL 9.7 MG/DL (8.5-10.1); CARBON DIOXIDE LEVEL 27 MMOL/L (20-31); CHLORIDE LEVEL 105 MMOL/L (98-107); CREATININE FOR GFR 0.69 MG/DL (0.70-1.30); GLOMERULAR FILTRATION RATE > 60.0 (>60); GLUCOSE, FASTING 101 MG/DL (60-100); POTASSIUM SERUM 4.7 MMOL/L (3.5-5.1); SODIUM LEVEL 137 MMOL/L (136-145)
[2024-09-24 14:08] LABS: THYROID STIMULATING HORMONE 1.728 uIU/ML (0.55-4.78)
[2024-09-24 14:54] LABS: HEMOGLOBIN A1c 5.6 % (4.0-6.0)
== END ==
LOC: M LAB REF 12:57
PROVIDERS: ATTEND Family Medicine Addiction Medicine
DX: E11.69 Type 2 diabetes mellitus with other specified complication (principal)

== ENCOUNTER → 2024-09-26 | Outpatient (REF) | payer OTHER ==
[~2024-09-26] MED LIST changes: +METF-1156 PO; -METF-817 PO
== END ==
LOC: M LAB REF 12:06
PROVIDERS: ATTEND Nurse Practitioner Family
DX: B34.9 Viral infection, unspecified (principal)

== ENCOUNTER → 2024-10-12 | Outpatient (CLI) | payer OTHER ==
[2024-10-12 07:31] LABS: BASO % 0.8 % (0.0-1.0); EOS # 0.1 10^3/uL (0.0-0.5); EOS % 2.5 % (0.0-3.0); HEMATOCRIT 45.4 % (42.0-52.0); HEMOGLOBIN 16.5 g/dl (13.5-17.5); LYMPH # 1.3 10^3/uL (1.5-5.0); MEAN CORPUSCULAR HEMOGLOBIN 31.1 pg (27.0-33.0); MEAN CORPUSCULAR HGB CONC 36.3 g/dl (32.0-36.5); MEAN CORPUSCULAR VOLUME 85.5 fl (80.0-96.0); MONO # 0.6 10^3/uL (0.0-0.8); MONO % 10.9 % (2.0-8.0); NEUTROPHILS # 3.2 10^3/uL (1.5-8.5); NEUTROPHILS % 61.6 % (36.0-66.0); PLATELET COUNT, AUTOMATED 189 10^3/uL (150-450); RED BLOOD COUNT 5.31 10^6/uL (4.30-6.10); WHITE BLOOD COUNT 5.3 10^3/uL (4.0-10.0)
[2024-10-12 08:02] LABS: C REACTIVE PROTEIN QUANTITATIV < 0.40 MG/DL (<1.0)
[2024-10-12 08:03] LABS: ALBUMIN 3.9 G/DL (3.2-5.2); ALKALINE PHOSPHATASE 136 U/L (40-129); ALT/SGPT 28 U/L (7.0-40); AST/SGOT 16 U/L (<34); BILIRUBIN,DIRECT 0.2 MG/DL (<0.4); BILIRUBIN,TOTAL 0.5 MG/DL (0.3-1.2); BLOOD UREA NITROGEN 6 MG/DL (9-23); CALCIUM LEVEL 9.3 MG/DL (8.5-10.1); CARBON DIOXIDE LEVEL 25 MMOL/L (20-31); CHLORIDE LEVEL 95 MMOL/L (98-107); CREATININE FOR GFR 0.64 MG/DL (0.70-1.30); GLOMERULAR FILTRATION RATE > 60.0 (>60); GLUCOSE, FASTING 102 MG/DL (60-100); POTASSIUM SERUM 4.1 MMOL/L (3.5-5.1); SODIUM LEVEL 127 MMOL/L (136-145); TOTAL PROTEIN 7.5 G/DL (5.7-8.2)
[2024-10-12 08:06] LABS: ERYTHROCYTE SEDIMENTATION RATE 6 mm/hr (0-15)
== END ==
LOC: M LAB 07:05
PROVIDERS: ATTEND Internal Medicine
DX: H15.003 Unspecified scleritis, bilateral (principal)

== ENCOUNTER 2024-10-16 10:07 | Emergency (ER) | payer OTHER ==
[~2024-10-16] VITALS: Ht 170.2 cm; Wt 104.2 kg
[2024-10-16 10:11] VITALS: BP 128/64; TEMP 97.1; O2SAT 98
[2024-10-16 11:43] LABS: BASO % 0.7 % (0.0-1.0); EOS # 0.1 10^3/uL (0.0-0.5); EOS % 1.6 % (0.0-3.0); HEMATOCRIT 44.2 % (42.0-52.0); HEMOGLOBIN 15.9 g/dl (13.5-17.5); LYMPH # 0.8 10^3/uL (1.5-5.0); LYMPH % 15.3 % (24.0-44.0); MEAN CORPUSCULAR HEMOGLOBIN 31.1 pg (27.0-33.0); MEAN CORPUSCULAR VOLUME 86.3 fl (80.0-96.0); MONO # 0.5 10^3/uL (0.0-0.8); MONO % 8.4 % (2.0-8.0); NEUTROPHILS % 73.8 % (36.0-66.0); PLATELET COUNT, AUTOMATED 196 10^3/uL (150-450); RED BLOOD COUNT 5.12 10^6/uL (4.30-6.10); WHITE BLOOD COUNT 5.5 10^3/uL (4.0-10.0)
[2024-10-16 12:10] LABS: LIPASE 30 U/L (12-53)
[2024-10-16 12:12] LABS: ALBUMIN 3.8 G/DL (3.2-5.2); ALKALINE PHOSPHATASE 133 U/L (40-129); ALT/SGPT 26 U/L (7.0-40); AST/SGOT 17 U/L (<34); BILIRUBIN,DIRECT 0.1 MG/DL (<0.4); BILIRUBIN,TOTAL 0.3 MG/DL (0.3-1.2); BLOOD UREA NITROGEN 6 MG/DL (9-23); CALCIUM LEVEL 9.3 MG/DL (8.5-10.1); CARBON DIOXIDE LEVEL 27 MMOL/L (20-31); CHLORIDE LEVEL 100 MMOL/L (98-107); CREATININE FOR GFR 0.59 MG/DL (0.70-1.30); GLOMERULAR FILTRATION RATE > 60.0 (>60); GLUCOSE, FASTING 113 MG/DL (60-100); POTASSIUM SERUM 3.9 MMOL/L (3.5-5.1); SODIUM LEVEL 131 MMOL/L (136-145); TOTAL PROTEIN 7.2 G/DL (5.7-8.2)
[2024-10-16] MEDS ORDERED: MIRA3350 PO (12:40)
[2024-10-16] MEDS: MAGNESIUM CITRATE 300ML BTL PO ONE (12:46)
== END 2024-10-16 12:53 | disposition home or self-care (01) ==
LOC: M ED 10:07
DX: R10.13 Epigastric pain (principal); K59.00 Constipation, unspecified; K21.9 Gastro-esophageal reflux disease without esophagitis; G40.909 Epilepsy, unspecified, not intractable, without status epilepticus; Z88.2 Allergy status to sulfonamides; Z88.8 Allergy status to other drugs, medicaments and biological substances; Z79.02 Long term (current) use of antithrombotics/antiplatelets; Z79.899 Other long term (current) drug therapy

== ENCOUNTER → 2024-10-17 | Outpatient (REF) | payer OTHER, MEDICAID ==
[~2024-10-17] MED LIST changes: +MIRA3350 PO
== END ==
LOC: M SFHCRHEU 11:55
PROVIDERS: ATTEND Internal Medicine
DX: E87.1 Hypo-osmolality and hyponatremia (principal)

== ENCOUNTER → 2024-10-26 | Outpatient (REF) | payer OTHER, MEDICAID ==
[2024-10-26 14:15] LABS: BLOOD UREA NITROGEN 15 MG/DL (9-23); CALCIUM LEVEL 9.5 MG/DL (8.5-10.1); CARBON DIOXIDE LEVEL 25 MMOL/L (20-31); CHLORIDE LEVEL 109 MMOL/L (98-107); CREATININE FOR GFR 0.81 MG/DL (0.70-1.30); GLOMERULAR FILTRATION RATE > 60.0 (>60); GLUCOSE, FASTING 118 MG/DL (60-100); POTASSIUM SERUM 4.4 MMOL/L (3.5-5.1); SODIUM LEVEL 143 MMOL/L (136-145)
== END ==
LOC: M SFHCRHEU 08:27
PROVIDERS: ATTEND Internal Medicine
DX: E87.1 Hypo-osmolality and hyponatremia (principal)

== ENCOUNTER 2024-11-02 11:36 | Observation (INO) | payer MEDICAID, OTHER ==
[~2024-11-02] VITALS: Ht 170.2 cm; Wt 102.7 kg
[~2024-11-02 11:36] MED LIST changes: +ASPIRIN 325 MG TAB PO SCH
[2024-11-02] MEDS ORDERED: ISOVUE-370 76% 100ML VIAL As Ordered ONE (12:26)
[2024-11-02 12:31] LABS: BASO % 0.7 % (0.0-1.0); EOS # 0.1 10^3/uL (0.0-0.5); EOS % 1.9 % (0.0-3.0); HEMATOCRIT 44.3 % (42.0-52.0); HEMOGLOBIN 15.8 g/dl (13.5-17.5); LYMPH # 0.6 10^3/uL (1.5-5.0); LYMPH % 14.7 % (24.0-44.0); MEAN CORPUSCULAR HGB CONC 35.7 g/dl (32.0-36.5); MEAN CORPUSCULAR VOLUME 86.9 fl (80.0-96.0); MONO # 0.4 10^3/uL (0.0-0.8); MONO % 9.7 % (2.0-8.0); NEUTROPHILS % 72.8 % (36.0-66.0); PLATELET COUNT, AUTOMATED 159 10^3/uL (150-450); WHITE BLOOD COUNT 4.1 10^3/uL (4.0-10.0)
[2024-11-02 12:44] LABS: INR 0.93; PARTIAL THROMBOPLASTIN TIME 25.4 SECONDS (24.8-34.2); PROTHROMBIN TIME 12.8 SECONDS (12.5-14.5)
[2024-11-02 12:47] LABS: CK-MB VALUE MASS 11.9 NG/ML (<3.6)
[2024-11-02 12:49] LABS: ALBUMIN 3.6 G/DL (3.2-5.2); ALKALINE PHOSPHATASE 127 U/L (40-129); ALT/SGPT 30 U/L (7.0-40); AST/SGOT 20 U/L (<34); BILIRUBIN,DIRECT 0.1 MG/DL (<0.4); BILIRUBIN,TOTAL 0.3 MG/DL (0.3-1.2); TOTAL PROTEIN 6.8 G/DL (5.7-8.2)
[2024-11-02 12:50] LABS: CPK CREATINE PHOSPHOKINASE 294 U/L (46-171); MB/CK RELATIVE INDEX 4.04 (< OR =4)
[2024-11-02] MEDS ORDERED: OMEP-173 PO (14:33)
[2024-11-02] MEDS ORDERED: D3 S20002 PO (14:33)
[2024-11-02] MEDS ORDERED: HOME MED LIST COMPLETE! XX SCH (14:35)
[2024-11-02] MEDS ORDERED: MOM 30ML SUSPENSION UDC PO PRN (15:05)
[2024-11-02] MEDS ORDERED: methocarbamoL 500 MG TAB PO PRN (15:15)
[2024-11-02] MEDS: LORazepam 1 MG TAB PO STA (15:42)
[2024-11-02] MEDS ORDERED: DEXTROSE 50% 50ML SYRINGE IV PRN (15:55)
[2024-11-02] MEDS ORDERED: GLUCAGON INJ 1MG VIAL SC PRN (15:55)
[2024-11-02] MEDS ORDERED: GLUCOSE 4 GM CHEW PO PRN (15:55)
[2024-11-02 16:18] LABS: INR 0.92; PARTIAL THROMBOPLASTIN TIME 23.4 SECONDS (24.8-34.2); PROTHROMBIN TIME 12.7 SECONDS (12.5-14.5)
[2024-11-02 16:31] LABS: C REACTIVE PROTEIN QUANTITATIV < 0.50 MG/DL (<1.0); CHOLESTEROL LEVEL 100 MG/DL (<200); CHOLESTEROL RISK RATIO 2.65 (<5); HDL CHOLESTEROL 37.6 MG/DL (>40); NON-HDL-C 62.4 MG/DL; TRIGLYCERIDES LEVEL 82 MG/DL (<150)
[2024-11-02 16:32] LABS: RHEUMATOID FACTOR QUANT < 3.5 IU/ML (<14)
[2024-11-02 17:30] VITALS: BP 121/66; TEMP 97.3; O2SAT 100
[2024-11-02] MEDS: INSULIN LISPRO (NovoLOG) PER UNIT SC SCH ×2 (17:30→21:00)
[2024-11-02 17:36] LABS: HEMOGLOBIN A1c 5.6 % (4.0-6.0)
[2024-11-02 19:42] VITALS: BP 114/66; TEMP 97.9; O2SAT 96
[2024-11-02] MEDS: OMEPRAZOLE 20MG CAP PO SCH (22:25)
[2024-11-02] MEDS: ARIPiprazole 15 MG TAB (AbiLIFY) PO SCH (22:25)
[2024-11-02] MEDS: DOCUSATE SODIUM 100MG CAPSULE PO SCH (22:25)
[2024-11-02] MEDS: lamoTRIgine 25MG TAB PO SCH (22:25)
[2024-11-02] MEDS: OXcarbazepine 300 MG TAB PO SCH (22:26)
[2024-11-02] MEDS: TOPIRAMATE (TopAMAX) 100 MG TAB PO SCH (22:26)
[2024-11-02] MEDS: PRAZOSIN 1 MG CAP PO SCH (22:26)
[2024-11-02 22:30] VITALS: BP 108/63; O2SAT 95
[2024-11-02 23:30] VITALS: O2SAT 96
[2024-11-03] VITALS (11 sets, daily range): BP systolic 107–118; BP diastolic 60–70; TEMP 97.9–98.1; O2SAT 94–96
[2024-11-03] MEDS: ATORVASTATIN 20 MG TAB PO SCH (08:11)
[2024-11-03] MEDS: VITAMIN D 1,000 INTERNATIONAL UNITS TABLET PO SCH (08:12)
[2024-11-03] MEDS: ESCITALOPRAM OXALATE 10 MG TAB (LEXAPRO) PO SCH (08:12)
[2024-11-03] MEDS: ASPIRIN 81MG ENTERIC TABLET PO SCH (08:13)
[2024-11-03] MEDS: MONTELUKAST 10 MG TAB PO SCH (08:13)
[2024-11-03] MEDS: ACETAMINOPHEN 325 MG TAB PO PRN (08:14)
[2024-11-03] MEDS: LACTOBACILLUS ACIDOPHILUS CAP (BACID) PO SCH (12:55)
[2024-11-03] MEDS: CEPHALEXIN 500 MG CAP PO SCH (12:55)
[2024-11-03] MEDS: ENOXAPARIN 40MG/0.4ML SYRINGE (J1650 PER 10MG) SC SCH (21:41)
[2024-11-04 01:48] VITALS: BP 120/67; TEMP 97.9; O2SAT 95
[2024-11-04 04:21] VITALS: BP 104/68; TEMP 97.7; O2SAT 93
[2024-11-04 06:03] VITALS: BP 107/69; TEMP 97.9; O2SAT 95
[2024-11-04 08:00] VITALS: BP 102/54; TEMP 97.9; O2SAT 96
[2024-11-04] MEDS ORDERED: CEPH500C PO (11:03)
[2024-11-04] MEDS ORDERED: RISATAB3 PO (11:03)
[2024-11-04 12:00] VITALS: BP_SYST 102; BP_SYST 105; BP_DIAS 54; BP_DIAS 70; TEMP 97.9; TEMP 98.2; O2SAT 92; O2SAT 96
[2024-11-05 13:38] LABS: SSA SJOGRENS A <1.0 NEG AI (<1.0 NEG); SSB SJOGRENS B <1.0 NEG AI (<1.0 NEG)
[2024-11-06 01:27] LABS: CARDIOLIPIN IGA ANTIBODY < 2.0 APL-U/mL (<20.0); CARDIOLIPIN IGG ANTIBODY < 2.0 GPL-U/mL (<20.0); CARDIOLIPIN IGM ANTIBODY < 2.0 MPL-U/mL (<20.0)
[2024-11-06 18:06] LABS: FACTOR V111 ACTIVITY, CLOTTING 126 % normal (50-180); FACTOR VIII APTT 28 sec (23-32); RISTOCETIN COFACTOR 154 % normal (42-200); VW FACTOR ANTIGEN 126 % (50-217)
[2024-11-07 01:47] LABS: ANTI THROMBIN 3 ANTIGEN IMMUNO 84 % normal (80-120); ANTI THROMBIN 3 FUNCT ACTIVITY 109 % normal (80-135)
[2024-11-07 12:48] LABS: TOPIRAMATE LEVEL 8.5 mcg/mL (see note)
[2024-11-07 13:02] LABS: OXCARBAZEPINE 24.6 mcg/mL (8.0-35.0)
[2024-11-07 13:57] LABS: PROTEIN S ANTIGEN FREE 80 % normal (57-171); PROTEIN S ANTIGEN TOTAL 98 % normal (70-140)
[2024-11-07 15:34] LABS: PROTEIN C ANTIGEN 95 % normal (70-140)
[2024-11-07 20:07] LABS: FACTOR II PROTHROMBIN GENE AN NEGATIVE
== END 2024-11-04 13:25 | disposition home or self-care (01) ==
LOC: EDBD 11:36 → M ED 11:36 → M ED INP 15:06 → M MSPAV 17:24
PROVIDERS: ADMIT Student in an Organized Health Care Education/Training Program; ATTEND Student in an Organized Health Care Education/Training Program
DX: G45.9 Transient cerebral ischemic attack, unspecified (principal); L02.11 Cutaneous abscess of neck; J98.11 Atelectasis; G40.909 Epilepsy, unspecified, not intractable, without status epilepticus; F32.A Depression, unspecified; F43.10 Post-traumatic stress disorder, unspecified; E55.9 Vitamin D deficiency, unspecified; J30.9 Allergic rhinitis, unspecified; F39 Unspecified mood [affective] disorder; M54.50 Low back pain, unspecified; E11.9 Type 2 diabetes mellitus without complications; Z79.899 Other long term (current) drug therapy; Z88.2 Allergy status to sulfonamides; Z88.1 Allergy status to other antibiotic agents; Z88.8 Allergy status to other drugs, medicaments and biological substances; Z79.2 Long term (current) use of antibiotics
CPT/HCPCS: 36415; 70450; 70496; 70498; 70551; 71045; 76536; 80047; 80061; 80076; 80175; 80183; 80299; 81001; 81240; 82550; 82553; 83036; 84484; 85025; 85240; 85245; 85246; 85300; 85301; 85302; 85305; 85306; 85610; 85652; 85730; 86140; 86147; 86235; 86431; 86850; 86900; 86901; 93005; 93041; 93306; 94760; 96372; 97116; 97161; 97530; 99285; J1650; J1815; Q9967

== ENCOUNTER → 2024-11-20 | Outpatient (CLI) | payer OTHER ==
[~2024-11-20] MED LIST changes: -ASPIRIN 325 MG TAB PO SCH; +CEPH500C PO; +D3 S20002 PO; +OMEP-173 PO; +RISATAB3 PO
== END ==
LOC: M RAD 07:41
PROVIDERS: ATTEND Otolaryngology
DX: R22.1 Localized swelling, mass and lump, neck (principal)

== ENCOUNTER → 2024-11-22 | Outpatient (CLI) | payer OTHER | LOC: M EKG 08:52 | PROVIDERS: ATTEND Nurse Practitioner Family | DX: Z53.9 Procedure and treatment not carried out, unspecified reason (principal) ==

== ENCOUNTER 2024-12-16 09:45 | Emergency (ER) | payer OTHER ==
[~2024-12-16] VITALS: Ht 170.2 cm; Wt 105.4 kg
[2024-12-16] MEDS ORDERED: ISOVUE-370 76% 100ML VIAL As Ordered ONE (10:16)
[2024-12-16 10:22] LABS: BASO % 0.8 % (0.0-1.0); EOS # 0.1 10^3/uL (0.0-0.5); EOS % 1.1 % (0.0-3.0); HEMATOCRIT 46.6 % (42.0-52.0); HEMOGLOBIN 16.3 g/dl (13.5-17.5); LYMPH # 0.8 10^3/uL (1.5-5.0); LYMPH % 14.3 % (24.0-44.0); MEAN CORPUSCULAR HEMOGLOBIN 30.9 pg (27.0-33.0); MEAN CORPUSCULAR VOLUME 88.4 fl (80.0-96.0); MONO # 0.6 10^3/uL (0.0-0.8); MONO % 10.3 % (2.0-8.0); NEUTROPHILS # 3.9 10^3/uL (1.5-8.5); NEUTROPHILS % 73.3 % (36.0-66.0); PLATELET COUNT, AUTOMATED 147 10^3/uL (150-450); RED BLOOD COUNT 5.27 10^6/uL (4.30-6.10); WHITE BLOOD COUNT 5.3 10^3/uL (4.0-10.0)
[2024-12-16 10:43] LABS: INR 0.89; PARTIAL THROMBOPLASTIN TIME 26.8 SECONDS (24.8-34.2); PROTHROMBIN TIME 12.4 SECONDS (12.5-14.5)
[2024-12-16 10:51] LABS: BLOOD UREA NITROGEN 10 MG/DL (9-23); CALCIUM LEVEL 9.1 MG/DL (8.5-10.1); CARBON DIOXIDE LEVEL 24 MMOL/L (20-31); CHLORIDE LEVEL 102 MMOL/L (98-107); GLOMERULAR FILTRATION RATE > 60.0 (>60); GLUCOSE, FASTING 66 MG/DL (60-100); POTASSIUM SERUM 3.8 MMOL/L (3.5-5.1); SODIUM LEVEL 138 MMOL/L (136-145)
[2024-12-16 15:05] VITALS: BP 119/64; TEMP 97.9; O2SAT 99
== END 2024-12-16 15:13 | disposition home or self-care (01) ==
LOC: M ED 09:45
DX: R53.1 Weakness (principal); R42 Dizziness and giddiness; I44.4 Left anterior fascicular block; G40.909 Epilepsy, unspecified, not intractable, without status epilepticus; F31.9 Bipolar disorder, unspecified; E11.9 Type 2 diabetes mellitus without complications; K21.9 Gastro-esophageal reflux disease without esophagitis; M54.50 Low back pain, unspecified; Z88.2 Allergy status to sulfonamides; Z88.8 Allergy status to other drugs, medicaments and biological substances; Z79.02 Long term (current) use of antithrombotics/antiplatelets; Z79.83 Long term (current) use of bisphosphonates; Z79.2 Long term (current) use of antibiotics; Z79.899 Other long term (current) drug therapy
CPT/HCPCS: 36415; 70450; 70496; 70498; 70551; 71045; 80047; 80048; 85025; 85610; 85730; 93005; 93041; 94760; 99285; Q9967

== ENCOUNTER → 2024-12-20 | Outpatient (REF) | payer OTHER ==
[2024-12-20 13:49] LABS: ALBUMIN 4.2 G/DL (3.2-5.2); ALKALINE PHOSPHATASE 136 U/L (40-129); ALT/SGPT 32 U/L (7.0-40); AST/SGOT 20 U/L (<34); BILIRUBIN,TOTAL 0.4 MG/DL (0.3-1.2); BLOOD UREA NITROGEN 10 MG/DL (9-23); CALCIUM LEVEL 9.5 MG/DL (8.5-10.1); CARBON DIOXIDE LEVEL 26 MMOL/L (20-31); CHLORIDE LEVEL 105 MMOL/L (98-107); CHOLESTEROL LEVEL 143 MG/DL (<200); CHOLESTEROL RISK RATIO 3.02 (<5); CREATININE FOR GFR 0.71 MG/DL (0.70-1.30); GLOMERULAR FILTRATION RATE > 60.0 (>60); GLUCOSE, FASTING 127 MG/DL (60-100); HDL CHOLESTEROL 47.2 MG/DL (>40); NON-HDL-C 95.8 MG/DL; POTASSIUM SERUM 4.5 MMOL/L (3.5-5.1); SODIUM LEVEL 140 MMOL/L (136-145); TOTAL PROTEIN 7.7 G/DL (5.7-8.2); TRIGLYCERIDES LEVEL 119 MG/DL (<150)
[2024-12-20 13:53] LABS: THYROID STIMULATING HORMONE 3.948 uIU/ML (0.55-4.78)
[2024-12-20 14:07] LABS: HEMOGLOBIN A1c 5.6 % (4.0-6.0)
[2024-12-20 14:18] LABS: CREATININE, URINE 86.4 MG/DL; MAU/CREAT RATIO 6.9 MCG/MG (0.0-30.0)
== END ==
LOC: M LAB REF 12:52
PROVIDERS: ATTEND Student in an Organized Health Care Education/Training Program
DX: E11.69 Type 2 diabetes mellitus with other specified complication (principal)

== ENCOUNTER 2025-01-21 23:26 | Emergency (ER) | payer MEDICAID, MEDICARE, OTHER, SELFPAY ==
[~2025-01-21] VITALS: Ht 170.2 cm; Wt 108.2 kg
[~2025-01-21 23:26] MED LIST changes: -ARIP1TAB10 PO; -ASPI81TA26 PO; -FLUTISP; -GLIP-318 PO; +GLIP5TAB20 PO; -OXCA300T14 PO
[2025-01-22 00:40] LABS: BASO % 0.6 % (0.0-1.0); EOS % 0.6 % (0.0-3.0); HEMATOCRIT 39.3 % (42.0-52.0); LYMPH % 19.8 % (24.0-44.0); MEAN CORPUSCULAR HGB CONC 35.6 g/dl (32.0-36.5); MEAN CORPUSCULAR VOLUME 86.9 fl (80.0-96.0); MONO # 0.5 10^3/uL (0.0-0.8); MONO % 10.3 % (2.0-8.0); NEUTROPHILS # 3.6 10^3/uL (1.5-8.5); NEUTROPHILS % 68.5 % (36.0-66.0); PLATELET COUNT, AUTOMATED 171 10^3/uL (150-450); RED BLOOD COUNT 4.52 10^6/uL (4.30-6.10); WHITE BLOOD COUNT 5.3 10^3/uL (4.0-10.0)
[2025-01-22] MEDS ORDERED: ISOVUE-370 76% 100ML VIAL As Ordered ONE (00:45)
[2025-01-22 00:57] LABS: BLOOD UREA NITROGEN 10 MG/DL (9-23); CALCIUM LEVEL 8.4 MG/DL (8.5-10.1); CARBON DIOXIDE LEVEL 24 MMOL/L (20-31); CHLORIDE LEVEL 100 MMOL/L (98-107); CREATININE FOR GFR 0.66 MG/DL (0.70-1.30); GLOMERULAR FILTRATION RATE > 60.0 (>60); GLUCOSE, FASTING 145 MG/DL (60-100); POTASSIUM SERUM 3.8 MMOL/L (3.5-5.1); SODIUM LEVEL 134 MMOL/L (136-145)
[2025-01-22] MEDS ORDERED: ASPI81TA26 PO (02:14)
[2025-01-22 02:30] VITALS: O2SAT 98
[2025-01-22] MEDS: ASPIRIN 325 MG TAB PO ONE (02:32)
[2025-01-22 02:35] VITALS: BP 121/62; TEMP 97.2
== END 2025-01-22 02:40 | disposition home or self-care (01) ==
LOC: M ED 23:26 → EDBD 23:26 → M ED 01-22 02:40
DX: G45.9 Transient cerebral ischemic attack, unspecified (principal); K21.9 Gastro-esophageal reflux disease without esophagitis; G40.909 Epilepsy, unspecified, not intractable, without status epilepticus; F31.9 Bipolar disorder, unspecified; F41.9 Anxiety disorder, unspecified; F32.A Depression, unspecified; G43.909 Migraine, unspecified, not intractable, without status migrainosus; E55.9 Vitamin D deficiency, unspecified; Z86.73 Personal history of transient ischemic attack (TIA), and cerebral infarction without residual deficits; Z88.2 Allergy status to sulfonamides; Z88.8 Allergy status to other drugs, medicaments and biological substances; Z79.82 Long term (current) use of aspirin; Z79.02 Long term (current) use of antithrombotics/antiplatelets; Z79.899 Other long term (current) drug therapy
CPT/HCPCS: 36415; 70450; 70496; 70498; 71045; 80047; 80048; 83735; 85025; 87486; 87581; 87633; 87798; 93005; 99284; Q9967

== ENCOUNTER → 2025-01-21 | Outpatient (CLI) | payer MEDICAID, OTHER ==
[~2025-01-21] MED LIST changes: +ARIP1TAB10 PO; +ASPI81TA26 PO; +FLUTISP; +GLIP-318 PO; -GLIP5TAB20 PO; +OXCA300T14 PO
[2025-01-21 08:09] LABS: EOS % 0.8 % (0.0-3.0); HEMATOCRIT 39.7 % (42.0-52.0); HEMOGLOBIN 14.1 g/dl (13.5-17.5); LYMPH # 0.7 10^3/uL (1.5-5.0); LYMPH % 19.3 % (24.0-44.0); MEAN CORPUSCULAR HEMOGLOBIN 30.9 pg (27.0-33.0); MEAN CORPUSCULAR HGB CONC 35.5 g/dl (32.0-36.5); MEAN CORPUSCULAR VOLUME 86.9 fl (80.0-96.0); MONO # 0.4 10^3/uL (0.0-0.8); MONO % 11.2 % (2.0-8.0); NEUTROPHILS # 2.6 10^3/uL (1.5-8.5); NEUTROPHILS % 67.4 % (36.0-66.0); PLATELET COUNT, AUTOMATED 176 10^3/uL (150-450); RED BLOOD COUNT 4.57 10^6/uL (4.30-6.10); WHITE BLOOD COUNT 3.8 10^3/uL (4.0-10.0)
[2025-01-21 08:14] LABS: ERYTHROCYTE SEDIMENTATION RATE 8 mm/hr (0-15)
[2025-01-21 08:40] LABS: ALBUMIN 3.8 G/DL (3.2-5.2); ALKALINE PHOSPHATASE 107 U/L (40-129); ALT/SGPT 27 U/L (7.0-40); AST/SGOT 16 U/L (<34); BILIRUBIN,DIRECT 0.2 MG/DL (<0.4); BILIRUBIN,TOTAL 0.5 MG/DL (0.3-1.2); BLOOD UREA NITROGEN 10 MG/DL (9-23); C REACTIVE PROTEIN QUANTITATIV 1.19 MG/DL (<1.0); CALCIUM LEVEL 8.9 MG/DL (8.5-10.1); CARBON DIOXIDE LEVEL 28 MMOL/L (20-31); CHLORIDE LEVEL 99 MMOL/L (98-107); CREATININE FOR GFR 0.69 MG/DL (0.70-1.30); GLOMERULAR FILTRATION RATE > 60.0 (>60); GLUCOSE, FASTING 118 MG/DL (60-100); POTASSIUM SERUM 3.7 MMOL/L (3.5-5.1); SODIUM LEVEL 134 MMOL/L (136-145); TOTAL PROTEIN 6.9 G/DL (5.7-8.2)
== END ==
LOC: M LAB 07:38
PROVIDERS: ATTEND Internal Medicine
DX: H15.003 Unspecified scleritis, bilateral (principal)

== ENCOUNTER → 2025-02-11 | Day surgery (SDC) | payer MEDICAID ==
[~2025-02-11] VITALS: Ht 170.2 cm; Wt 100.2 kg
[~2025-02-11] MED LIST changes: +ARIP1TAB10 PO; +ASPI81TA26 PO; +FLUTISP; +GLIP-318 PO; -GLIP5TAB20 PO; +LIDOCAINE 2% 100MG/5ML SDV (FOR ANES.) As Ordered ONE; +LR 1,000 ML IV SCH; +ONDANSETRON 4MG 2ML VIAL As Ordered ONE; +OXCA300T14 PO; +propofoL 200 MG/20 ML VIAL As Ordered ONE
[2025-02-11 10:27] VITALS: BP 120/53; TEMP 97.8; O2SAT 100
== END | disposition home or self-care (01) ==
LOC: M SDC 09:25
PROVIDERS: ATTEND Otolaryngology
DX: R22.1 Localized swelling, mass and lump, neck (principal); Z53.8 Procedure and treatment not carried out for other reasons

== ENCOUNTER → 2025-03-12 | Outpatient (CLI) | payer MEDICAID ==
[~2025-03-12] MED LIST changes: -LIDOCAINE 2% 100MG/5ML SDV (FOR ANES.) As Ordered ONE; -LR 1,000 ML IV SCH; -ONDANSETRON 4MG 2ML VIAL As Ordered ONE; -propofoL 200 MG/20 ML VIAL As Ordered ONE
[2025-03-12 08:23] LABS: HEMOGLOBIN A1c 5.5 % (4.0-6.0)
[2025-03-13 23:08] LABS: CARDIOLIPIN IGA ANTIBODY 2.4 APL-U/mL (<20.0); CARDIOLIPIN IGG ANTIBODY < 2.0 GPL-U/mL (<20.0); CARDIOLIPIN IGM ANTIBODY < 2.0 MPL-U/mL (<20.0)
== END ==
LOC: M LAB 07:09
PROVIDERS: ATTEND Psychiatry & Neurology Neurology
DX: E11.9 Type 2 diabetes mellitus without complications (principal); Z86.73 Personal history of transient ischemic attack (TIA), and cerebral infarction without residual deficits

== ENCOUNTER → 2025-03-18 | Outpatient (REF) | payer MEDICAID ==
[~2025-03-18] MED LIST changes: +FLUO1TAB4 PO; -FLUO20TA28 PO; +TOPI-14 PO; -TOPI200T7 PO
[2025-03-18 13:53] LABS: HEMATOCRIT 43.2 % (42.0-52.0); HEMOGLOBIN 15.2 g/dl (13.5-17.5); MEAN CORPUSCULAR HEMOGLOBIN 30.7 pg (27.0-33.0); MEAN CORPUSCULAR HGB CONC 35.2 g/dl (32.0-36.5); MEAN CORPUSCULAR VOLUME 87.3 fl (80.0-96.0); PLATELET COUNT, AUTOMATED 179 10^3/uL (150-450); RED BLOOD COUNT 4.95 10^6/uL (4.30-6.10); WHITE BLOOD COUNT 5.2 10^3/uL (4.0-10.0)
[2025-03-18 14:08] LABS: ALKALINE PHOSPHATASE 91 U/L (40-129); ALT/SGPT 31 U/L (7.0-40); AST/SGOT 19 U/L (<34); BILIRUBIN,TOTAL 0.3 MG/DL (0.3-1.2); BLOOD UREA NITROGEN 12 MG/DL (9-23); CALCIUM LEVEL 9.5 MG/DL (8.5-10.1); CARBON DIOXIDE LEVEL 26 MMOL/L (20-31); CHLORIDE LEVEL 98 MMOL/L (98-107); CHOLESTEROL LEVEL 115 MG/DL (<200); CHOLESTEROL RISK RATIO 2.66 (<5); GLOMERULAR FILTRATION RATE > 90.0 (>60); GLUCOSE, FASTING 93 MG/DL (60-100); HDL CHOLESTEROL 43.2 MG/DL (>40); LDL CHOLESTEROL 51.4 MG/DL (<100); NON-HDL-C 71.8 MG/DL; POTASSIUM SERUM 4.6 MMOL/L (3.5-5.1); SODIUM LEVEL 132 MMOL/L (136-145); TRIGLYCERIDES LEVEL 102 MG/DL (<150)
== END ==
LOC: M LAB REF 12:35
PROVIDERS: ATTEND Family Medicine Addiction Medicine
DX: E11.9 Type 2 diabetes mellitus without complications (principal)

== ENCOUNTER → 2025-06-19 | Outpatient (REF) | payer MEDICAID ==
[~2025-06-19] MED LIST changes: +CELL500T PO; +LAMO-18 PO; -LAMO25TA4 PO; +LIDO1ADH93 TOP; -LIDO5DIS41 TOP; +PREG50CA3
[2025-06-19 13:06] LABS: ALT/SGPT 26 U/L (7.0-40); AST/SGOT 19 U/L (<34); CALCIUM LEVEL 8.7 MG/DL (8.5-10.1); CARBON DIOXIDE LEVEL 24 MMOL/L (20-31); CHLORIDE LEVEL 102 MMOL/L (98-107); CHOLESTEROL LEVEL 94 MG/DL (<200); CHOLESTEROL RISK RATIO 2.64 (<5); CREATININE FOR GFR 0.81 MG/DL (0.70-1.30); GLOMERULAR FILTRATION RATE > 90.0 (>60); LDL CHOLESTEROL 39.7 MG/DL (<100); NON-HDL-C 58.5 MG/DL; POTASSIUM SERUM 4.3 MMOL/L (3.5-5.1); SODIUM LEVEL 139 MMOL/L (136-145); TRIGLYCERIDES LEVEL 94 MG/DL (<150)
[2025-06-19 13:11] LABS: CREATININE, URINE 92.2 MG/DL; MALB URINE SIEMENS < 3.0 MG/L
[2025-06-19 13:30] LABS: ESTIMATED AVERAGE GLUCOSE 108.0 MG/DL (60-110)
== END ==
LOC: M LAB REF 12:12
PROVIDERS: ATTEND Family Medicine Addiction Medicine
DX: E11.9 Type 2 diabetes mellitus without complications (principal)

== ENCOUNTER → 2025-08-09 | Outpatient (CLI) | payer MEDICAID ==
[~2025-08-09] MED LIST changes: -IBUP-1022 PO; +IBUP600T42 PO
== END ==
LOC: M LAB 07:52
PROVIDERS: ATTEND Family Medicine Addiction Medicine
DX: M54.40 Lumbago with sciatica, unspecified side (principal)

== ENCOUNTER 2025-09-14 07:37 | Emergency (ER) | payer MEDICAID ==
[~2025-09-14] VITALS: Ht 170.2 cm; Wt 101.6 kg
[2025-09-14] MEDS ORDERED: ISOVUE-370 76% 100 ML VIAL As Ordered ONE (07:52)
[2025-09-14 08:07] LABS: BASO # 0.0 10^3/uL (0.0-0.2); BASO % 0.8 % (0.0-1.0); EOS # 0.1 10^3/uL (0.0-0.5); EOS % 2.3 % (0.0-3.0); LYMPH # 0.8 10^3/uL (1.5-5.0); LYMPH % 21.5 % (24.0-44.0); MONO # 0.3 10^3/uL (0.0-0.8); MONO % 8.4 % (2.0-8.0); NEUTROPHILS # 2.6 10^3/uL (1.5-8.5); NEUTROPHILS % 66.7 % (36.0-66.0); PLATELET COUNT, AUTOMATED 164 10^3/uL (150-450)
[2025-09-14 08:20] LABS: INR 0.96
[2025-09-14 08:28] LABS: CALCIUM LEVEL 9.0 MG/DL (8.5-10.1); CARBON DIOXIDE LEVEL 25 MMOL/L (20-31); CHLORIDE LEVEL 105 MMOL/L (98-107); CREATININE FOR GFR 0.73 MG/DL (0.70-1.30); GLOMERULAR FILTRATION RATE > 90.0 (>60); POTASSIUM SERUM 3.7 MMOL/L (3.5-5.1); SODIUM LEVEL 139 MMOL/L (136-145)
[2025-09-14] MEDS: ASPIRIN 81 MG CHEWABLE TABLET PO ONE (08:45)
[2025-09-14] MEDS: CLOPIDOGREL 300 MG TAB PO STA (08:45)
[2025-09-14 09:10] LABS: CK-MB VALUE MASS 9.3 NG/ML (<3.6)
[2025-09-14 09:11] LABS: CPK CREATINE PHOSPHOKINASE 165 U/L (46-171); MB/CK RELATIVE INDEX 5.63 (< OR =4)
[2025-09-14 09:40] VITALS: BP 124/68; TEMP 97.7; O2SAT 99
[2025-09-14 09:52] LABS: KETONE, URINE AUTO RFX NEGATIVE (NEGATIVE); LEUKOCYTE ESTERASE UR AUTO RFX NEGATIVE (NEGATIVE); NITRITE, URINE AUTO RFX NEGATIVE (NEGATIVE); RBC, URINE AUTO RFX 1 /HPF (0-3); SQUAM EPITHELIAL CELL UR AURFX 0 /HPF (0-6); WBC, URINE AUTO RFX 1 /HPF (0-3)
== END 2025-09-14 09:49 | disposition short-term general hospital (02) ==
LOC: M ED 07:37
DX: G45.9 Transient cerebral ischemic attack, unspecified (principal); E11.9 Type 2 diabetes mellitus without complications; I67.1 Cerebral aneurysm, nonruptured; G47.30 Sleep apnea, unspecified; K21.9 Gastro-esophageal reflux disease without esophagitis; F41.9 Anxiety disorder, unspecified; F31.9 Bipolar disorder, unspecified; Z86.79 Personal history of other diseases of the circulatory system; Z88.2 Allergy status to sulfonamides; Z88.8 Allergy status to other drugs, medicaments and biological substances; Z79.82 Long term (current) use of aspirin; Z79.02 Long term (current) use of antithrombotics/antiplatelets; Z79.899 Other long term (current) drug therapy
CPT/HCPCS: 36415; 70450; 70496; 70498; 71045; 80047; 80048; 80175; 80183; 81001; 82550; 82553; 84484; 85025; 85610; 85730; 86850; 86900; 86901; 93005; 93041; 94760; 99291; 99292; Q9967

== ENCOUNTER → 2025-09-20 | Outpatient (REF) | payer MEDICAID ==
[2025-09-20 14:31] LABS: ALT/SGPT 28 U/L (7.0-40); AST/SGOT 22 U/L (<34); CALCIUM LEVEL 9.1 MG/DL (8.5-10.1); CARBON DIOXIDE LEVEL 27 MMOL/L (20-31); CHLORIDE LEVEL 106 MMOL/L (98-107); CHOLESTEROL LEVEL 150 MG/DL (<200); CHOLESTEROL RISK RATIO 3.62 (<5); CREATININE FOR GFR 0.76 MG/DL (0.70-1.30); GLOMERULAR FILTRATION RATE > 90.0 (>60); LDL CHOLESTEROL 84.6 MG/DL (<100); NON-HDL-C 108.6 MG/DL; POTASSIUM SERUM 4.4 MMOL/L (3.5-5.1); SODIUM LEVEL 142 MMOL/L (136-145); TRIGLYCERIDES LEVEL 120 MG/DL (<150)
[2025-09-20 14:35] LABS: ESTIMATED AVERAGE GLUCOSE 111.0 MG/DL (60-110)
== END ==
LOC: M LAB REF 12:26
PROVIDERS: ATTEND Family Medicine Addiction Medicine
DX: E11.9 Type 2 diabetes mellitus without complications (principal)

== ENCOUNTER → 2025-10-31 | Outpatient (CLI) | payer MEDICAID | LOC: M PLALAB 09:03 | PROVIDERS: ATTEND Internal Medicine Gastroenterology | DX: A09 Infectious gastroenteritis and colitis, unspecified (principal); K86.81 Exocrine pancreatic insufficiency; R19.4 Change in bowel habit ==

== ENCOUNTER 2025-11-12 20:45 | Emergency (ER) | payer MEDICAID ==
[~2025-11-12] VITALS: Ht 170.2 cm; Wt 102.8 kg
[2025-11-12 21:45] LABS: BASO # 0.0 10^3/uL (0.0-0.2); BASO % 0.7 % (0.0-1.0); EOS # 0.2 10^3/uL (0.0-0.5); EOS % 4.0 % (0.0-3.0); LYMPH # 1.4 10^3/uL (1.5-5.0); LYMPH % 24.4 % (24.0-44.0); MONO # 0.5 10^3/uL (0.0-0.8); MONO % 7.9 % (2.0-8.0); NEUTROPHILS # 3.6 10^3/uL (1.5-8.5); NEUTROPHILS % 62.6 % (36.0-66.0); PLATELET COUNT, AUTOMATED 183 10^3/uL (150-450)
[2025-11-12] MEDS ORDERED: ISOVUE-370 76% 100 ML VIAL As Ordered ONE (21:58)
[2025-11-12 22:07] LABS: INR 0.96
[2025-11-12] MEDS: KETOROLAC 30 MG/ML 1 ML VIAL IV ONE (22:16)
[2025-11-12] MEDS: NS (Normal Saline) 0.9% 1,000 ML IV ONE (22:16)
[2025-11-12 22:40] LABS: ALT/SGPT 26 U/L (7.0-40); AST/SGOT 24 U/L (<34); CK-MB VALUE MASS 12.1 NG/ML (<3.6)
[2025-11-12 22:41] LABS: CPK CREATINE PHOSPHOKINASE 244 U/L (46-171); MB/CK RELATIVE INDEX 4.95 (< OR =4)
[2025-11-12 23:30] LABS: CK-MB VALUE MASS 11.3 NG/ML (<3.6)
[2025-11-12 23:31] LABS: CPK CREATINE PHOSPHOKINASE 233.0 U/L (46-171); MB/CK RELATIVE INDEX 4.84 (< OR =4)
[2025-11-12 23:45] VITALS: BP 123/74; TEMP 97.1; O2SAT 97
== END 2025-11-13 | disposition home or self-care (01) ==
LOC: M ED 20:45
DX: R51.9 Headache, unspecified (principal); R42 Dizziness and giddiness; R00.1 Bradycardia, unspecified; E11.9 Type 2 diabetes mellitus without complications; F31.9 Bipolar disorder, unspecified; F43.10 Post-traumatic stress disorder, unspecified; K21.9 Gastro-esophageal reflux disease without esophagitis; G43.909 Migraine, unspecified, not intractable, without status migrainosus; G40.909 Epilepsy, unspecified, not intractable, without status epilepticus; Z86.79 Personal history of other diseases of the circulatory system; Z88.2 Allergy status to sulfonamides; Z88.8 Allergy status to other drugs, medicaments and biological substances; Z79.82 Long term (current) use of aspirin; Z79.02 Long term (current) use of antithrombotics/antiplatelets; Z79.899 Other long term (current) drug therapy
CPT/HCPCS: 70450; 70496; 70498; 71045; 80047; 80076; 82550; 82553; 84484; 85025; 85610; 85730; 86850; 86900; 86901; 93005; 93041; 94760; 96361; 96374; 99285; J1885; Q9967

== ENCOUNTER → 2025-11-15 | Outpatient (REF) | payer MEDICAID | LOC: M LAB REF 11:02 | PROVIDERS: ATTEND Internal Medicine Gastroenterology | DX: R19.4 Change in bowel habit (principal); K86.81 Exocrine pancreatic insufficiency; A09 Infectious gastroenteritis and colitis, unspecified ==